=== PATIENT | female | born 1930 | race Caucasian/White ===

== ENCOUNTER 2018-02-21 14:13 | Observation (INO) ==
[2018-02-21] MEDS ORDERED: Pantoprazole Inj 40 MG Vial IV.PUSH ONE (15:01)
--- NOTE | 2018-02-21 16:02 | ED ---
HPI General Chief complaint: GI Bleed Stated complaint: Rectal bleeding Time Seen by Provider: 02/21/18 14:44 Source: patient Limitations: no limitations History of Present Illness HPI Narrative: Patient is an 87-year-old female past medical history significant for CHF, CKD, atrial fibrillation, on warfarin, who presents with complaint of bright red blood per rectum that she noticed today. She states that she woke up this morning and went to go use the restroom at which time she wiped and some blood on the toilet paper. She states that she has had several such episodes of bloody bowel movements throughout the day with intermittent diarrhea. She denies fevers. This has never happened before. She is on warfarin but has not had it checked in the last month because she has been out of town. She denies history of diverticulosis/diverticulitis, peptic ulcer disease, liver disease. She has had associated epigastric abdominal pain in addition to left lower quadrant abdominal pain which has been mild and associated with nausea but without vomiting. MD complaint: blood on toilet paper, blood streaked stool and gross hematochezia Onset (ago): hour(s) Pain Consistency: constant Severity: mild Relieving factors: none Exacerbating factors: none Context: anticoagulant use Associated symptoms: abdominal pain and nausea Treatments Prior to Arrival: none Related Data Home Medications Medication Instructions Recorded Confirmed Osteo Bi-Flex PO DAILY 02/21/18 acetaminophen [Tylenol Extra 500 mg PO BID 02/21/18 02/21/18 Strength] artifi.tears(hypromellose)(PF) 1 drp OPHTHALMIC (EYE) Q4-6H 02/21/18 02/21/18 ascorbic acid (vitamin C) [Vitamin 1,000 mg PO DAILY 02/21/18 02/21/18 C] calcium carbonate-vitamin D3 02/21/18 02/21/18 [Calcium 600 with Vitamin D3] clonidine HCl 0.1 mg PO BID 02/21/18 02/21/18 cyanocobalamin (vitamin B-12) 1,000 mcg PO BID 02/21/18 02/21/18 [Vitamin B-12] diltiazem HCl 240 mg PO DAILY 02/21/18 02/21/18 estradiol 1 mg PO DAILY 02/21/18 02/21/18 furosemide 40 mg PO QNOON 02/21/18 02/21/18 furosemide 80 mg PO QAM 02/21/18 02/21/18 [id number] C-Mn 02/21/18 [Glucosamine-Chondroitin Complx] levothyroxine 175 mcg PO DAILY 02/21/18 02/21/18 lovastatin 40 mg PO QPM 02/21/18 02/21/18 multivitamin [Multiple Vitamins] 1 tab PO DAILY 02/21/18 02/21/18 omega-3 fatty acids [Fish Oil 1,200 mg PO BID 02/21/18 02/21/18 Concentrate] potassium chloride [K-Tab] 20 meq PO DAILY 02/21/18 02/21/18 ranitidine HCl 300 mg PO DAILY 02/21/18 02/21/18 sertraline 50 mg PO DAILY 02/21/18 02/21/18 warfarin 2 mg PO DAILY 02/21/18 02/21/18 Allergies Allergy/AdvReac Type Severity Reaction Status Date / Time REYNA Inhibitors Allergy Severe Hives Verified 02/21/18 15:27 amlodipine Allergy Severe Hives Verified 02/21/18 15:27 ARB-Angiotensin Receptor Allergy Severe Hives Verified 02/21/18 15:27 Antagonist Calcium Channel Blocking Allergy Severe Hives Verified 02/21/18 15:27 Agent Dilt ciprofloxacin Allergy Severe Hives Verified 02/21/18 15:27 enalaprilat Allergy Severe Hives Verified 02/21/18 15:27 hydrochlorothiazide Allergy Severe Hives Verified 02/21/18 15:27 niacin Allergy Severe Hives Verified 02/21/18 15:27 ramipril Allergy Severe Hives Verified 02/21/18 15:27 Thiazides Allergy Severe Hives Verified 02/21/18 15:27 valsartan Allergy Severe Hives Verified 02/21/18 15:27 Review of Systems Except as stated in HPI: all other systems reviewed are negative Constitutional Denies fever(s) Eyes Denies blurry vision ENT Denies dizziness and Denies epistaxis Cardiovascular Denies chest pain and Denies diaphoresis Respiratory Denies dyspnea Gastrointestinal Reports hematochezia, Reports diarrhea and Denies vomiting Genitourinary Denies hematuria Musculoskeletal Denies back pain Neurologic Denies headache(s) Hematologic/Lymphatic Denies easy bruising PMFSH Medical History Medical History Atypical chest pain (Acute) CHF (congestive heart failure) (Acute) CKD (chronic kidney disease) stage 3, GFR 30-59 ml/min (Acute) Hypothyroidism (Acute) Pulmonary HTN (Acute) Atrial fibrillation (Acute) Edema leg (Acute) History of hysterectomy (Acute) Hypercholesteremia (Acute) Hypertension (Acute) Pacemaker (Acute) Surgical History Surgical History History of bunionectomy of both great toes (Acute) Hx of vein stripping (Acute) Social History Social History Substance History: No History of Abuse Second Hand Smoke Exposure: No Smoking Status: Never smoker How Often Do You Have a Drink Containing Alcohol: Monthly or less Recent Travel in [facility] within the Last 8 Weeks: No Recent Out of Country Travel within the Last 8 Weeks: No Immunization History Tetanus Immunization: <5 Years Hx Influenza Vaccine This Season: Yes Exam Narrative Exam Narrative: GENERAL: Well-appearing female who appears her stated age SKIN: Focused skin assessment warm/dry. HEAD: Atraumatic. Normocephalic. EYES: Pupils equal and round. No scleral icterus. No injection or drainage. ENT: No nasal bleeding or discharge. Mucous membranes pink and moist. NECK: Trachea midline. No JVD. CARDIOVASCULAR: Regular rate and rhythm. No murmur appreciated. RESPIRATORY: No accessory muscle use. Clear to auscultation. Breath sounds equal bilaterally. GASTROINTESTINAL: Abdomen soft, slightly tender in the epigastric and left lower quadrant regions, nondistended. Hepatic and splenic margins not palpable. Rectal exam reveals small external hemorrhoids and was grossly positive for blood. MUSCULOSKELETAL: No obvious deformities. No clubbing. No cyanosis. No edema. NEUROLOGICAL: Awake and alert. No obvious cranial nerve deficits. Motor grossly within normal limits. Normal speech. PSYCHIATRIC: Appropriate mood and affect; insight and judgment normal. Course Hospital Course: Patient was placed on a manager cardiac and IV was established. Labs were drawn and sent including a type and screen. GI bleed study was ordered. Reevaluation(s) Reevaluation #1: Patient has continued to do well. She continues to have intermittent bright red blood per rectum but has remained stable. Time: 19:44 Initial Documented Vital Signs Temperature 98.1 F 02/21/18 14:22 Pulse Rate 70 02/21/18 14:22 Respiratory Rate 18 02/21/18 14:22 Blood Pressure 182/81 H 02/21/18 14:22 Pulse Oximetry 95 02/21/18 14:22 Last Documented Vital Signs Temperature 98.1 F 02/21/18 14:22 Pulse Rate 70 18 18:46 Respiratory Rate 16 02/21/18 18:46 Blood Pressure 133/94 H 02/21/18 18:46 Pulse Oximetry 94 L 02/21/18 18:46 Medical Decision Making MDM Narrative Medical decision making narrative: Patient is an 87-year-old female, on warfarin , who presents with complaint of bright red blood per rectum that began today. She has been hemodynamically stable while in the ED. Labs revealed supratherapeutic INR at 3.3 with a mild anemia, baseline is unknown. Given her stability her work which will be held but does not need to be reversed at this time. Nuclear medicine study did not reveal a source of the GI bleed. She will admit be admitted to the hospitalist service overnight as observation. Differential Diagnosis Differential Diagnosis: Differential includes but is not limited to peptic ulcer disease, diverticulosis, AVM, supratherapeutic INR. Medical Records Medical records reviewed: Yes I reviewed the patient's medical records. Lab Data Lab results reviewed: Yes I reviewed the patient's lab results. Lab results narrative: Anemia present with slight elevation of the BUN consistent with a GI bleed. INR is supratherapeutic. Result diagrams: 02/21/18 15:30 02/21/18 15:30 Lab Results 02/21/18 02/21/18 02/21/18 Range/Units 15:30 15:30 15:30 WBC 7.3 (4.0-11.0) th/mm3 RBC 3.93 L (4.00-5.30) mil/mm3 Hgb 11.1 L (11.6-15.3) gm/dL Hct 33.8 L (35.0-46.0) % MCV 85.9 (80.0-100.0) fL MCH 28.3 (27.0-34.0) pg MCHC 32.9 (32.0-36.0) % RDW 14.0 (11.6-17.2) % Plt Count 240 (150-450) th/mm3 MPV 9.2 (7.0-11.0) fL Neut % (Auto) 59.9 (16.0-70.0) % Lymph % (Auto) 26.3 (9.0-44.0) % [place] % (Auto) 12.5 H (0.0-8.0) % Eos % (Auto) 0.9 (0.0-4.0) % Baso % (Auto) 0.4 (0.0-2.0) % Neut # (Auto) 4.4 (1.8-7.7) th/mm3 Lymph # (Auto) 1.9 (1.0-4.8) th/mm3 [place] # (Auto) 0.9 (0.0-0.9) th/mm3 Eos # (Auto) 0.1 (0.0-0.4) th/mm3 Baso # (Auto) 0.0 (0.0-0.2) th/mm3 WBC Differential . Differential Comment Auto diff final PT 33.3 H (9.8-11.6) sec INR 3.3 Ratio APTT (24.3-30.1) sec Sodium 142 (136-145) meq/L Potassium 3.6 (3.5-5.1) meq/L Chloride 103 (98-107) meq/L Carbon Dioxide 31.9 (21.0-32.0) meq/L Anion Gap 7 (5-15) meq/L BUN 20 H (7-18) mg/dL Creatinine 1.26 H (0.50-1.00) mg/dL Estimated GFR 40 L (>89) mL/min Random Glucose 99 (74-106) mg/dL Calcium 8.9 (8.5-10.1) mg/dL Total Bilirubin 0.4 (0.2-1.0) mg/dL AST 17 (15-37) U/L ALT 20 (10-53) U/L Alkaline Phosphatase 78 (45-117) U/L Total Protein 7.4 (6.4-8.2) g/dL Albumin 3.5 (3.4-5.0) g/dL Blood Type Antibody Screen 02/21/18 02/21/18 Range/Units 15:30 15:30 WBC (4.0-11.0) th/mm3 RBC (4.00-5.30) mil/mm3 Hgb (11.6-15.3) gm/dL Hct (35.0-46.0) % MCV (80.0-100.0) fL MCH (27.0-34.0) pg MCHC (32.0-36.0) % RDW (11.6-17.2) % Plt Count (150-450) th/mm3 MPV (7.0-11.0) fL Neut % (Auto) (16.0-70.0) % Lymph % (Auto) (9.0-44.0) % [place] % (Auto) (0.0-8.0) % Eos % (Auto) (0.0-4.0) % Baso % (Auto) (0.0-2.0) % Neut # (Auto) (1.8-7.7) th/mm3 Lymph # (Auto) (1.0-4.8) th/mm3 [place] # (Auto) (0.0-0.9) th/mm3 Eos # (Auto) (0.0-0.4) th/mm3 Baso # (Auto) (0.0-0.2) th/mm3 WBC Differential Differential Comment PT (9.8-11.6) sec INR Ratio APTT 37.8 H (24.3-30.1) sec Sodium (136-145) meq/L Potassium (3.5-5.1) meq/L Chloride (98-107) meq/L Carbon Dioxide (21.0-32.0) meq/L Anion Gap (5-15) meq/L BUN (7-18) mg/dL Creatinine (0.50-1.00) mg/dL Estimated GFR (>89) mL/min Random Glucose (74-106) mg/dL Calcium (8.5-10.1) mg/dL Total Bilirubin (0.2-1.0) mg/dL AST (15-37) U/L ALT (10-53) U/L Alkaline Phosphatase (45-117) U/L Total Protein (6.4-8.2) g/dL Albumin (3.4-5.0) g/dL Blood Type B Positive Antibody Screen Negative Imaging Data Radiologist's impression: GI Bleed Scan Nuclear Medicine 02/21/18 15:20 CONCLUSION: 1. Negative GI bleeding study. Discharge Plan Discharge Disposition Patient Disposition: 30 Still Patient Discharge Condition Condition: Stable Discharge Details Diagnosis: Acute blood loss anemia, Hematochezia, Supratherapeutic INR Physicians Team ED Provider: Magnolia Adams Primary Care Provider: Dio Abernathy Attending Provider: Suleman Ureña Discharge Interventions Interventions: Vital Signs Last Done: 02/21/18 18:46 Status ED Status: Admitted Observation Patient
[2018-02-21 16:03] LABS: Baso % (Auto) 0.4 % (0.0-2.0); Eos # (Auto) 0.1 th/mm3 (0.0-0.4); Eos % (Auto) 0.9 % (0.0-4.0); Hematocrit 33.8 % (35.0-46.0); Hemoglobin 11.1 gm/dL (11.6-15.3); Lymph # (Auto) 1.9 th/mm3 (1.0-4.8); Lymph % (Auto) 26.3 % (9.0-44.0); Mean Corpuscular HGB Conc 32.9 % (32.0-36.0); Mean Corpuscular Hemoglobin 28.3 pg (27.0-34.0); Mean Corpuscular Volume 85.9 fL (80.0-100.0); Mean Platelet Volume 9.2 fL (7.0-11.0); Mono # (Auto) 0.9 th/mm3 (0.0-0.9); Mono % (Auto) 12.5 % (0.0-8.0); Neut # (Auto) 4.4 th/mm3 (1.8-7.7); Neut % (Auto) 59.9 % (16.0-70.0); Platelet Count 240 th/mm3 (150-450); Red Blood Count 3.93 mil/mm3 (4.00-5.30); White Blood Count 7.3 th/mm3 (4.0-11.0)
[2018-02-21 16:15] LABS: INR 3.3 Ratio; Prothrombin Time 33.3 sec (9.8-11.6)
[2018-02-21 16:27] LABS: Alanine Aminotransferase 20 U/L (10-53); Albumin 3.5 g/dL (3.4-5.0); Anion Gap 7 meq/L (5-15); Aspartate Aminotransferase 17 U/L (15-37); Blood Urea Nitrogen 20 mg/dL (7-18); Calcium 8.9 mg/dL (8.5-10.1); Carbon Dioxide 31.9 meq/L (21.0-32.0); Chloride 103 meq/L (98-107); Glomerular Filtration Rate 40 mL/min (>89); Glucose,Random 99 mg/dL (74-106); Potassium 3.6 meq/L (3.5-5.1); Sodium 142 meq/L (136-145)
[2018-02-21 16:30] LABS: Alkaline Phosphatase 78 U/L (45-117); Total Protein 7.4 g/dL (6.4-8.2)
--- NOTE | 2018-02-21 19:02 | NM ---
EXAM DATE: 02/21/2018 6:36 PM EDT AGE/SEX: 87 years / Female INDICATIONS: Rectal bleeding. CLINICAL DATA: This is the patient's initial encounter. Patient reports that signs and symptoms have been present for 1 day and indicates a pain score of 0/10. MEDICAL/SURGICAL HISTORY: Hypertension. Hysterectomy. Pacemaker. COMPARISON: No prior exams available for comparison. TECHNIQUE: Following the modified in vitro labeling of autologous red cells, dynamic continuous image s were acquired for two hours. ?? DOSE: 21.2 mCi Tc 99m Ultratag Labeled Red Blood Cells IV IMAGING TIME: 2 hr FINDINGS: Biodistribution: There is a very good labeling of red cells without significant uptake in the gastri c wall. There is good delineation of the blood pool of the spleen and abdominal vessels. Bleeding: No episodes of active GI bleeding are observed during two hours of continuous observation . CONCLUSION: 1. Negative GI bleeding study. Electronically signed by: Yosef Redding MD 02/21/2018 7:01 PM EDT
[2018-02-21] MEDS ORDERED: Bisacodyl 10 MG Supp RECTAL PRN ×2 (21:54→21:55)
[2018-02-21] MEDS ORDERED: Temazepam 15 MG Capsule PO PRN ×2 (21:54→21:55)
--- NOTE | 2018-02-21 22:13 | P.HP ---
History of Present Illness Service: [facility] hospitalist Primary Care Physician: Dio Abernathy Chief Complaint: blood per rectum History of Present Illness: Patient is an 87-year-old female past medical history significant for congestive heart failure, chronic kidney disease, atrial fibrillation, on warfarin, who presents with complaints of red blood per rectum that she noticed today. Patient states that she woke up this morning when to go to use the restroom at which time she wiped herself and blood was on the toilet paper. She states that she had several such episodes of bloody bowel movements throughout the day with intermittent loose stools. States that this never happened to her before. Patient states that she takes warfarin but has not had it checked in over a month with her being out of town. Patient denies any fever or any history of diverticulosis diverticulitis, peptic ulcer disease, liver disease. In addition to the level of the blood in the rectum she has associated epigastric abdominal pain left lower quadrant abdominal pain mild in description associated with nausea but without vomiting. An evaluation in the emergency room hemoglobin was stable INR was slightly elevated at 3.3 and she did have guaiac positive stools. She will be admitted now will be started on Protonix drip will ask GI consult as the level was 3.3 vitamin K will be held for now we will just recheck INR in a.m. - Diagnosis (1) Acute blood loss anemia (2) Hematochezia (3) Supratherapeutic INR (4) CHF (congestive heart failure) Review of Systems All other systems reviewed negative except as stated in HPI PMFSH - History History Provided By: Patient - Medical History Medical History: Medical History (Last Reviewed 02/21/18 @ 16:55 by Magnolia Adams MD) Atypical chest pain CHF (congestive heart failure) CKD (chronic kidney disease) stage 3, GFR 30-59 ml/min Hypothyroidism Pulmonary HTN Atrial fibrillation Edema leg History of hysterectomy Hypercholesteremia Hypertension Pacemaker - Surgical History Surgical History: Surgical History (Last Reviewed 02/21/18 @ 16:55 by Magnolia Adams MD) History of bunionectomy of both great toes Hx of vein stripping - Tobacco History Second Hand Smoke Exposure: No Tobacco Use In Past 30 Days: No Smoking Status: Never smoker - Alcohol History How Often Do You Have a Drink Containing Alcohol: Monthly or less - Substance Use History Substance History: No History of Abuse - Travel History Recent Travel in the [place] Within the Last 8 Weeks: No Recent Travel Out of the Country Within the Last 8 Weeks: No - Immunization History Tetanus Immunization: <5 Years Hx Influenza Vaccine This Season: Yes Medications and Allergies Active Medications: Active Medications Acetaminophen (Tylenol) 500 mg PO BID [facility] Al Hydroxide/Mg Hydroxide (Milk Of Magnesia Liq) 30 ml PO Q12H PRN PRN Reason: Mild Constipation Bisacodyl (Dulcolax Supp) 10 mg RECTAL DAILY PRN PRN Reason: SEVERE CONSITIPATION Bisacodyl (Dulcolax Supp) 10 mg RECTAL DAILY PRN PRN Reason: SEVERE CONSITIPATION Clonidine HCl (Clonidine (Nicu) 20 Mcg/Ml Liq) 100 mcg PO BID [facility] Cyanocobalamin (Vitamin B12) 1,000 mcg PO BID [facility] Furosemide (Lasix) 40 mg PO QNOON [facility] Furosemide (Lasix) 80 mg PO QAM [facility] Pantoprazole Sodium 80 mg/ (Sodium Chloride) 100 mls @ 10 mls/hr IV.CONT CONT [facility] Lactulose (Lactulose Liq) 30 ml PO DAILY PRN PRN Reason: SEVERE CONSITIPATION Non-Formulary Medication (Artifi.Tears(Hypromellose)(Pf) [Artifi.Tears( Hypromellose)(Pf)]) 1 drp EACH EYE Q4-6H [facility] Non-Formulary Medication (Ascorbic Acid (Vitamin C) [Vitamin C]) 1,000 mg PO DAILY [facility] Non-Formulary Medication (Diltiazem Hcl [Diltiazem Hcl]) 240 mg PO DAILY [facility] Non-Formulary Medication (Estradiol [Estradiol]) 1 mg PO DAILY [facility] Non-Formulary Medication (Levothyroxine [Levothyroxine]) 175 mcg PO DAILY [facility] Non-Formulary Medication (Lovastatin [Lovastatin]) 40 mg PO QPM [facility] Non-Formulary Medication (Potassium Chloride [K-Tab]) 20 meq PO DAILY [facility] Non-Formulary Medication (Multivitamin [Multiple Vitamins]) 1 tab PO DAILY [facility] Senna/Docusate Sodium (Diane-Colace) 1 tab PO BID [facility] Senna/Docusate Sodium (Diane-Colace) 1 tab PO BID [facility] Sennosides (Senokot) 17.2 mg PO Q12H PRN PRN Reason: Moderate Constipation Sennosides (Senokot) 17.2 mg PO Q12H PRN PRN Reason: Moderate Constipation Sertraline HCl (Zoloft) 50 mg PO DAILY [facility] Sodium Chloride (Ns Flush) 2 ml IV.FLUSH PRN PRN PRN Reason: FLUSH AFTER USING IV ACCESS Temazepam (Restoril) 15 mg PO HS PRN PRN Reason: INSOMNIA Temazepam (Restoril) 15 mg PO HS PRN PRN Reason: INSOMNIA Allergies Allergy/AdvReac Type Severity Reaction Status Date / Time REYNA Inhibitors Allergy Severe Hives Verified 02/21/18 15:27 amlodipine Allergy Severe Hives Verified 02/21/18 15:27 ARB-Angiotensin Receptor Allergy Severe Hives Verified 02/21/18 15:27 Antagonist Calcium Channel Blocking Allergy Severe Hives Verified 02/21/18 15:27 Agent Dilt ciprofloxacin Allergy Severe Hives Verified 02/21/18 15:27 enalaprilat Allergy Severe Hives Verified 02/21/18 15:27 hydrochlorothiazide Allergy Severe Hives Verified 02/21/18 15:27 niacin Allergy Severe Hives Verified 02/21/18 15:27 ramipril Allergy Severe Hives Verified 02/21/18 15:27 Thiazides Allergy Severe Hives Verified 02/21/18 15:27 valsartan Allergy Severe Hives Verified 02/21/18 15:27 Home Medications Medication Instructions Recorded Confirmed Type Osteo Bi-Flex PO DAILY 02/21/18 History acetaminophen [Tylenol Extra 500 mg PO BID 02/21/18 02/21/18 History Strength] artifi.tears(hypromellose)(PF) 1 drp OPHTHALMIC (EYE) Q4-6H 02/21/18 02/21/18 History ascorbic acid (vitamin C) [Vitamin 1,000 mg PO DAILY 02/21/18 02/21/18 History C] calcium carbonate-vitamin D3 02/21/18 02/21/18 History [Calcium 600 with Vitamin D3] clonidine HCl 0.1 mg PO BID 02/21/18 02/21/18 History cyanocobalamin (vitamin B-12) 1,000 mcg PO BID 02/21/18 02/21/18 History [Vitamin B-12] diltiazem HCl 240 mg PO DAILY 02/21/18 02/21/18 History estradiol 1 mg PO DAILY 02/21/18 02/21/18 History furosemide 40 mg PO QNOON 02/21/18 02/21/18 History furosemide 80 mg PO QAM 02/21/18 02/21/18 History [id number] C-Mn 02/21/18 History [Glucosamine-Chondroitin Complx] levothyroxine 175 mcg PO DAILY 02/21/18 02/21/18 History lovastatin 40 mg PO QPM 02/21/18 02/21/18 History multivitamin [Multiple Vitamins] 1 tab PO DAILY 02/21/18 02/21/18 History omega-3 fatty acids [Fish Oil 1,200 mg PO BID 02/21/18 02/21/18 History Concentrate] potassium chloride [K-Tab] 20 meq PO DAILY 02/21/18 02/21/18 History ranitidine HCl 300 mg PO DAILY 02/21/18 02/21/18 History sertraline 50 mg PO DAILY 02/21/18 02/21/18 History warfarin 2 mg PO DAILY 02/21/18 02/21/18 History Exam Vital signs: Vital Signs 02/21/18 14:22 02/21/18 14:35 02/21/18 15:30 Temperature 98.1 F Pulse Rate 70 69 69 Respiratory Rate 18 16 16 Blood Pressure 182/81 H 133/96 H 133/96 H Pulse Oximetry 95 97 94 L 02/21/18 15:34 02/21/18 18:30 02/21/18 18:46 Temperature Pulse Rate 70 Respiratory Rate 16 Blood Pressure 133/94 H Pulse Oximetry 93 L 98 94 L Intake & Output 02/21/18 02/21/18 02/22/18 06:59 18:59 06:59 Weight 74.936 kg Narrative: GENERAL: SKIN: Warm and dry. HEAD: Normocephalic. EYES: No scleral icterus. No injection or drainage. NECK: Supple, trachea midline. No JVD or lymphadenopathy. CARDIOVASCULAR: Regular rate and rhythm without murmurs, gallops, or rubs. RESPIRATORY: Breath sounds equal bilaterally. No accessory muscle use. GASTROINTESTINAL: Abdomen soft tender diffuse guiac positive stools MUSCULOSKELETAL: No cyanosis, or edema. BACK: Nontender without obvious deformity. No CVA tenderness. Results - Labs CBC & Chem 7: 02/21/18 15:30 02/21/18 15:30 Labs: Laboratory Results - last 24 hr 02/21/18 02/21/18 02/21/18 15:30 15:30 15:30 WBC 7.3 RBC 3.93 L Hgb 11.1 L Hct 33.8 L MCV 85.9 MCH 28.3 MCHC 32.9 RDW 14.0 Plt Count 240 MPV 9.2 Neut % (Auto) 59.9 Lymph % (Auto) 26.3 [place] % (Auto) 12.5 H Eos % (Auto) 0.9 Baso % (Auto) 0.4 Neut # (Auto) 4.4 Lymph # (Auto) 1.9 [place] # (Auto) 0.9 Eos # (Auto) 0.1 Baso # (Auto) 0.0 WBC Differential . Differential Comment Auto diff final PT 33.3 H INR 3.3 APTT Sodium 142 Potassium 3.6 Chloride 103 Carbon Dioxide 31.9 Anion Gap 7 BUN 20 H Creatinine 1.26 H Estimated GFR 40 L Random Glucose 99 Calcium 8.9 Total Bilirubin 0.4 AST 17 ALT 20 Alkaline Phosphatase 78 Total Protein 7.4 Albumin 3.5 Blood Type Antibody Screen 02/21/18 02/21/18 15:30 15:30 WBC RBC Hgb Hct MCV MCH MCHC RDW Plt Count MPV Neut % (Auto) Lymph % (Auto) [place] % (Auto) Eos % (Auto) Baso % (Auto) Neut # (Auto) Lymph # (Auto) [place] # (Auto) Eos # (Auto) Baso # (Auto) WBC Differential Differential Comment PT INR APTT 37.8 H Sodium Potassium Chloride Carbon Dioxide Anion Gap BUN Creatinine Estimated GFR Random Glucose Calcium Total Bilirubin AST ALT Alkaline Phosphatase Total Protein Albumin Blood Type B Positive Antibody Screen Negative - Imaging Impressions GI Bleed Scan Nuclear Medicine 02/21/18 15:20 CONCLUSION: 1. Negative GI bleeding study. Caprini VTE Risk Assessment Caprini VTE Risk Assessment: Moderate/High Risk (score >= 2) Caprini Risk Assessment Model: Point Value = 1 Point Value = 2 Point Value = 3 Point Value = 5 Age 41-60 Minor surgery BMI > 25 kg/m2 Swollen legs Varicose veins or History of unexplained or recurrent spontaneous Oral contraceptives or hormone replacement Sepsis (< 1 month) Serious lung disease, including pneumonia (< 1 month) Abnormal pulmonary function Acute myocardial infarction Congestive heart failure (< 1 month) History of inflammatory bowel disease Medical patient at bed rest Age 61-74 Arthroscopic surgery Major open surgery (> 45 min) Laparoscopic surgery (> 45 min) Malignancy Confined to bed (> 72 hours) Immobilizing plaster cast Central venous access Age >= 75 History of VTE Family history of VTE Factor V Leiden Prothrombin [id number] Lupus anticoagulant Anticardiolipin antibodies Elevated serum homocysteine Heparin-induced thrombocytopenia Other congenital or acquired thrombophilia Stroke (< 1 month) Elective arthroplasty Hip, pelvis, or leg fracture Acute spinal cord injury (< 1 month) Prophylaxis Regimen: Total Risk Factor Score Risk Level Prophylaxis Regimen 0-1 Low Early ambulation 2 Moderate Order ONE of the following: *Sequential Compression Device (SCD) *Heparin 5000 units SQ BID 3-4 Higher Order ONE of the following medications: *Heparin 5000 units SQ TID *Enoxaparin/Lovenox 40 mg SQ daily (WT < 150 kg, CrCl > 30 mL/min) *Enoxaparin/Lovenox 30 mg SQ daily (WT < 150 kg, CrCl > 10-29 mL/min) *Enoxaparin/Lovenox 30 mg SQ BID (WT < 150 kg, CrCl > 30 mL/min) AND/OR *Sequential Compression Device (SCD) 5 or more Highest Order ONE of the following medications: *Heparin 5000 units SQ TID (Preferred with Epidurals) *Enoxaparin/Lovenox 40 mg SQ daily (WT < 150 kg, CrCl > 30 mL/min) *Enoxaparin/Lovenox 30 mg SQ daily (WT < 150 kg, CrCl > 10-29 mL/min) *Enoxaparin/Lovenox 30 mg SQ BID (WT < 150 kg, CrCl > 30 mL/min) AND *Sequential Compression Device (SCD) Assessment and Plan - Assessment (1) Acute blood loss anemia Code(s): D62 - Acute posthemorrhagic anemia Status: Acute Plan: follow cbc GI evaluation protonix drip (2) Hematochezia Code(s): K92.1 - Melena Status: Acute Plan: as above GI evaluation protonix drip hold coumadin (3) Supratherapeutic INR Code(s): R79.1 - Abnormal coagulation profile Status: Acute Plan: recheck inr in am hold coumadin (4) CHF (congestive heart failure) Code(s): I50.9 - Heart failure, unspecified Status: Acute Plan: chronic on lasix bid will continue for now - Plan further plan as case develops Code Status: full Discussed Condition With: patient
[2018-02-21] MEDS ORDERED: Pantoprazole Inj 80 MG in Sodium Chlor 0.9% Inj 100 ML IV.CONT SCH (23:00)
[2018-02-21] MEDS: Furosemide 40 MG Tablet PO SCH (23:38)
[2018-02-22] MEDS: Artificial Tears Opth Drops 15 ML Bottle EACH EYE SCH ×3 (04:44→23:16)
[2018-02-22 07:16] LABS: INR 2.9 Ratio; Prothrombin Time 29.5 sec (9.8-11.6)
[2018-02-22 07:31] LABS: Calcium 8.4 mg/dL (8.5-10.1); Carbon Dioxide 31.6 meq/L (21.0-32.0); Potassium 3.2 meq/L (3.5-5.1)
[2018-02-22 07:38] LABS: Baso % (Auto) 0.5 % (0.0-2.0); Eos # (Auto) 0.1 th/mm3 (0.0-0.4); Eos % (Auto) 1.6 % (0.0-4.0); Hematocrit 30.5 % (35.0-46.0); Lymph # (Auto) 1.7 th/mm3 (1.0-4.8); Lymph % (Auto) 30.9 % (9.0-44.0); Mean Corpuscular HGB Conc 32.7 % (32.0-36.0); Mean Corpuscular Hemoglobin 28.1 pg (27.0-34.0); Mean Platelet Volume 8.7 fL (7.0-11.0); Mono # (Auto) 0.8 th/mm3 (0.0-0.9); Mono % (Auto) 14.6 % (0.0-8.0); Neut % (Auto) 52.4 % (16.0-70.0); Platelet Count 211 th/mm3 (150-450); Red Blood Count 3.55 mil/mm3 (4.00-5.30); White Blood Count 5.7 th/mm3 (4.0-11.0)
[2018-02-22] MEDS ORDERED: Sodium Chlor 0.9% Inj 250 ML IV.SIG SCH (09:00)
--- NOTE | 2018-02-22 09:00 | P.CONGI ---
History of Present Illness Consult date: 02/22/18 Consult reason: BRBPR Chief complaint: GI bleeding History of Present Illness: This is a 87 yo F with PMH significant for a-fib on Coumadin, HTN, hypothyroidism, hyperlipidemia, CHF, and CKD who presented to the ER yesterday with complaints of bloody stools. Pt states she first noticed blood in her stool yesterday morning, some maroon colored blood mixed in with a solid bowel movement. She had multiple stools throughout the day and she states with each bowel movement her stools became looser. Associated fecal urgency, denies incontinence. Reports some mild abdominal discomfort related to BMs and resolves after BMs. Also has been having some mild epigastric discomfort. Reports some mild intermittent nausea but denies any emesis. Denies heartburn and unintentional weight loss. Denies family history of colon cancer. She thinks her last colonoscopy was around 10 years ago and does not remember any abnormal findings. Does not think she has ever had an EGD. Denies ETOH and smoking. Takes [employer] Back ache medicine in the morning and has for multiple weeks. <Jewell Bravo - Last Filed: 02/22/18 08:40> Review of Systems Gastrointestinal: Reports abdominal pain, Reports bright, red blood in stools, Reports loose stools, Reports nausea, Denies black, tarry stools, Denies heartburn, Denies vomiting <Jewell Bravo - Last Filed: 02/22/18 08:40> PMFSH - History History Provided By: Patient - Medical History Medical History: Medical History (Last Reviewed 02/21/18 @ 16:55 by Magnolia Adams MD) Atypical chest pain CHF (congestive heart failure) CKD (chronic kidney disease) stage 3, GFR 30-59 ml/min Hypothyroidism Pulmonary HTN Atrial fibrillation Edema leg History of hysterectomy Hypercholesteremia Hypertension Pacemaker - Surgical History Surgical History: Surgical History (Last Reviewed 02/21/18 @ 16:55 by Magnolia Adams MD) History of bunionectomy of both great toes Hx of vein stripping - Tobacco History Second Hand Smoke Exposure: No Tobacco Use In Past 30 Days: No Smoking Status: Never smoker - Alcohol History How Often Do You Have a Drink Containing Alcohol: Never - Substance Use History Substance History: No History of Abuse, Active Abuse, Past History - Travel History Recent Travel in the [facility] Within the Last 8 Weeks: No Recent Travel Out of the Country Within the Last 8 Weeks: No - Immunization History Tetanus Immunization: >5 Years Hx Influenza Vaccine This Season: Yes <Jewell Bravo - Last Filed: 02/22/18 08:40> - Medical History Medical History: Medical History (Last Reviewed 02/21/18 @ 16:55 by Magnolia Adams MD) Atypical chest pain CHF (congestive heart failure) CKD (chronic kidney disease) stage 3, GFR 30-59 ml/min Hypothyroidism Pulmonary HTN Atrial fibrillation Edema leg History of hysterectomy Hypercholesteremia Hypertension Pacemaker - Surgical History Surgical History: Surgical History (Last Reviewed 02/21/18 @ 16:55 by Magnolia Adams MD) History of bunionectomy of both great toes Hx of vein stripping <Vaibhav Terrell - Last Filed: 02/22/18 23:12> Medications and Allergies Active Medications: Active Medications Acetaminophen (Tylenol) 500 mg PO BID [facility] Al Hydroxide/Mg Hydroxide (Milk Of Magnesia Liq) 30 ml PO Q12H PRN PRN Reason: Mild Constipation Artificial Tears (Tears Naturale Opth Drops) 1 drop EACH EYE Q4HR [facility] Last Admin: 02/22/18 04:44 Dose: Not Given Ascorbic Acid (Vitamin C) 1,000 mg PO DAILY [facility] Bisacodyl (Dulcolax Supp) 10 mg RECTAL DAILY PRN PRN Reason: SEVERE CONSITIPATION Bisacodyl (Dulcolax Supp) 10 mg RECTAL DAILY PRN PRN Reason: SEVERE CONSITIPATION Clonidine HCl (Catapres) 0.1 mg PO BID [facility] Cyanocobalamin (Vitamin B12) 1,000 mcg PO BID [facility] Diltiazem HCl (Cardizem Cd 24hr) 240 mg PO DAILY [facility] Estradiol (Estrace) 1 mg PO DAILY [facility] Furosemide (Lasix) 40 mg PO DAILY@1200 [facility] Last Admin: 02/21/18 23:38 Dose: 40 mg Furosemide (Lasix) 80 mg PO DAILY [facility] Pantoprazole Sodium 80 mg/ (Sodium Chloride) 100 mls @ 10 mls/hr IV.CONT CONT [facility] Lactulose (Lactulose Liq) 30 ml PO DAILY PRN PRN Reason: SEVERE CONSITIPATION Levothyroxine Sodium (Synthroid) 175 mcg PO DAILY@0600 [facility] Multivitamins (Theragran) 1 tab PO DAILY [facility] Potassium Chloride (K-Dur) 20 meq PO DAILY [facility] Pravastatin Sodium (Pravachol) 40 mg PO QPM [facility] Senna/Docusate Sodium (Diane-Colace) 1 tab PO BID [facility] Senna/Docusate Sodium (Diane-Colace) 1 tab PO BID [facility] Sennosides (Senokot) 17.2 mg PO Q12H PRN PRN Reason: Moderate Constipation Sertraline HCl (Zoloft) 50 mg PO DAILY [facility] Sodium Chloride (Ns Flush) 2 ml IV.FLUSH PRN PRN PRN Reason: FLUSH AFTER USING IV ACCESS Temazepam (Restoril) 15 mg PO HS PRN PRN Reason: INSOMNIA <Jewell Bravo - Last Filed: 02/22/18 08:40> Active Medications: Active Medications Acetaminophen (Tylenol) 500 mg PO BID [facility] Last Admin: 02/22/18 20:26 Dose: 500 mg Al Hydroxide/Mg Hydroxide (Milk Of Magnesia Liq) 30 ml PO Q12H PRN PRN Reason: Mild Constipation Artificial Tears (Refresh Tears 0.5% Opth Drops) 1 drop EACH EYE Q4H PRN PRN Reason: DRY EYE(S) Ascorbic Acid (Vitamin C) 1,000 mg PO DAILY [facility] Last Admin: 02/22/18 14:52 Dose: 500 mg Bisacodyl (Dulcolax Supp) 10 mg RECTAL DAILY PRN PRN Reason: SEVERE CONSITIPATION Bisacodyl (Dulcolax Supp) 10 mg RECTAL DAILY PRN PRN Reason: SEVERE CONSITIPATION Clonidine HCl (Catapres) 0.1 mg PO BID [facility] Last Admin: 02/22/18 20:26 Dose: 0.1 mg Cyanocobalamin (Vitamin B12) 1,000 mcg PO BID [facility] Last Admin: 02/22/18 20:26 Dose: 1,000 mcg Diltiazem HCl (Cardizem Cd 24hr) 240 mg PO DAILY [facility] Last Admin: 02/22/18 14:56 Dose: 240 mg Estradiol (Estrace) 1 mg PO DAILY [facility] Last Admin: 02/22/18 15:05 Dose: 1 mg Furosemide (Lasix) 40 mg PO DAILY@1200 [facility] Last Admin: 02/22/18 19:26 Dose: 40 mg Furosemide (Lasix) 80 mg PO DAILY [facility] Last Admin: 02/22/18 11:50 Dose: 80 mg Furosemide (Lasix) 40 mg PO QPM [facility] Last Admin: 02/22/18 19:39 Dose: 40 mg Sodium Chloride (Ns Inj) 250 mls @ 15 mls/hr IV.SIG ONCE [facility] Stop: 02/23/18 01:39 Last Admin: 02/22/18 11:45 Dose: 15 mls/hr Potassium Chloride/Sodium Chloride (Potassium Chlor 20 Meq/Nacl 0.45% Inj) 1, 000 mls @ 50 mls/hr IV.CONT .Q20H [facility] Last Admin: 02/22/18 14:51 Dose: 50 mls/hr Lactulose (Lactulose Liq) 30 ml PO DAILY PRN PRN Reason: SEVERE CONSITIPATION Levothyroxine Sodium (Synthroid) 175 mcg PO DAILY@0600 [facility] Last Admin: 02/22/18 15:17 Dose: Not Given Multivitamins (Theragran) 1 tab PO DAILY [facility] Last Admin: 02/22/18 11:53 Dose: 1 tab Pantoprazole Sodium (Protonix Inj) 40 mg IV.PUSH Q12H [facility] Last Admin: 02/22/18 14:39 Dose: 40 mg Potassium Chloride (K-Dur) 20 meq PO DAILY [facility] Last Admin: 02/22/18 14:53 Dose: 20 meq Pravastatin Sodium (Pravachol) 40 mg PO QPM [facility] Last Admin: 02/22/18 19:40 Dose: 40 mg Senna/Docusate Sodium (Diane-Colace) 1 tab PO BID [facility] Last Admin: 02/22/18 20:26 Dose: 1 tab Senna/Docusate Sodium (Diane-Colace) 1 tab PO BID [facility] Last Admin: 02/22/18 20:26 Dose: Not Given Sennosides (Senokot) 17.2 mg PO Q12H PRN PRN Reason: Moderate Constipation Sertraline HCl (Zoloft) 50 mg PO DAILY [facility] Last Admin: 02/22/18 14:53 Dose: 50 mg Sodium Chloride (Ns Flush) 2 ml IV.FLUSH PRN PRN PRN Reason: FLUSH AFTER USING IV ACCESS Temazepam (Restoril) 15 mg PO HS PRN PRN Reason: INSOMNIA <Vaibhav Terrell E - Last Filed: 02/22/18 23:12> Allergies Allergy/AdvReac Type Severity Reaction Status Date / Time REYNA Inhibitors Allergy Severe Hives Verified 02/21/18 15:27 amlodipine Allergy Severe Hives Verified 02/21/18 15:27 ARB-Angiotensin Receptor Allergy Severe Hives Verified 02/21/18 15:27 Antagonist Calcium Channel Blocking Allergy Severe Hives Verified 02/21/18 15:27 Agent Dilt ciprofloxacin Allergy Severe Hives Verified 02/21/18 15:27 enalaprilat Allergy Severe Hives Verified 02/21/18 15:27 hydrochlorothiazide Allergy Severe Hives Verified 02/21/18 15:27 niacin Allergy Severe Hives Verified 02/21/18 15:27 ramipril Allergy Severe Hives Verified 02/21/18 15:27 Thiazides Allergy Severe Hives Verified 02/21/18 15:27 valsartan Allergy Severe Hives Verified 02/21/18 15:27 Home Medications Medication Instructions Recorded Confirmed Type Osteo Bi-Flex PO DAILY 02/21/18 History acetaminophen [Tylenol Extra 500 mg PO BID 02/21/18 02/21/18 History Strength] artifi.tears(hypromellose)(PF) 1 drp OPHTHALMIC (EYE) Q4-6H 02/21/18 02/21/18 History ascorbic acid (vitamin C) [Vitamin 1,000 mg PO DAILY 02/21/18 02/21/18 History C] calcium carbonate-vitamin D3 02/21/18 02/21/18 History [Calcium 600 with Vitamin D3] clonidine HCl 0.1 mg PO BID 02/21/18 02/21/18 History cyanocobalamin (vitamin B-12) 1,000 mcg PO BID 02/21/18 02/21/18 History [Vitamin B-12] diltiazem HCl 240 mg PO DAILY 02/21/18 02/21/18 History estradiol 1 mg PO DAILY 02/21/18 02/21/18 History furosemide 40 mg PO QNOON 02/21/18 02/21/18 History furosemide 80 mg PO QAM 02/21/18 02/21/18 History [id number]-ovl C-Mn 02/21/18 History [Glucosamine-Chondroitin Complx] levothyroxine 175 mcg PO DAILY 02/21/18 02/21/18 History lovastatin 40 mg PO QPM 02/21/18 02/21/18 History multivitamin [Multiple Vitamins] 1 tab PO DAILY 02/21/18 02/21/18 History omega-3 fatty acids [Fish Oil 1,200 mg PO BID 02/21/18 02/21/18 History Concentrate] potassium chloride [K-Tab] 20 meq PO BID 02/21/18 02/22/18 History ranitidine HCl 300 mg PO DAILY 02/21/18 02/21/18 History sertraline 50 mg PO DAILY 02/21/18 02/21/18 History warfarin 2 mg PO DAILY 02/21/18 02/21/18 History furosemide [Lasix] 40 mg PO QPM 02/22/18 02/22/18 History Exam Vital signs: Vital Signs 02/21/18 14:22 02/21/18 14:35 02/21/18 15:30 Temperature 98.1 F Pulse Rate 70 69 69 Respiratory Rate 18 16 16 Blood Pressure 182/81 H 133/96 H 133/96 H Pulse Oximetry 95 97 94 L 02/21/18 15:34 02/21/18 18:30 02/21/18 18:46 Temperature Pulse Rate 70 Respiratory Rate 16 Blood Pressure 133/94 H Pulse Oximetry 93 L 98 94 L 02/21/18 23:56 02/22/18 03:40 02/22/18 04:00 Temperature 98.4 F 97.6 F Pulse Rate 70 70 Respiratory Rate 16 16 Blood Pressure 167/76 H 183/81 H 158/80 H Pulse Oximetry 95 89 L 02/22/18 07:36 Temperature 97.7 F Pulse Rate 70 Respiratory Rate 16 Blood Pressure 170/84 H Pulse Oximetry 93 L Intake & Output 02/21/18 02/22/18 02/22/18 18:59 06:59 18:59 Weight 74.936 kg 75 kg Other: Weight On Admission 75 kg - Constitutional no acute distress - Routine HEENT Exam Head: Present: normocephalic, atraumatic - Routine Respiratory Exam Absent: accessory muscle use - Routine Cardiovascular Exam Present: irregularly irregular - Routine Abdominal Exam Present: soft, normoactive bowel sounds. Absent: tenderness - Routine Skin Exam Present: dry, warm - Routine Neurological Exam Present: alert, oriented X3 <Jewell Bravo - Last Filed: 02/22/18 08:40> Vital signs: Vital Signs 02/21/18 23:56 02/22/18 03:40 02/22/18 04:00 Temperature 98.4 F 97.6 F Pulse Rate 70 70 Respiratory Rate 16 16 Blood Pressure 167/76 H 183/81 H 158/80 H Pulse Oximetry 95 89 L 02/22/18 07:36 02/22/18 11:48 02/22/18 15:47 Temperature 97.7 F 97.9 F 98.5 F Pulse Rate 70 70 71 Respiratory Rate 16 18 17 Blood Pressure 170/84 H 157/73 H 155/72 H Pulse Oximetry 93 L 95 92 L 02/22/18 19:00 02/22/18 20:20 Temperature 98.1 F Pulse Rate 70 Respiratory Rate 17 Blood Pressure 134/62 Pulse Oximetry 98 96 Intake & Output 02/22/18 02/22/18 02/23/18 06:59 18:59 06:59 Intake Total 720 / 720 Balance 720 / 720 Weight 75 kg Intake: Oral 720 / 720 Other: # Voids 4 Date of Last Bowel Movement 02/22/18 # Bowel Movements 0 Weight On Admission 75 kg <Vaibhav Terrell - Last Filed: 02/22/18 23:12> Results - Labs CBC & Chem 7: 02/22/18 05:55 02/22/18 05:55 Labs: Laboratory Results - last 24 hr 02/21/18 02/21/18 02/21/18 15:30 15:30 15:30 WBC 7.3 RBC 3.93 L Hgb 11.1 L Hct 33.8 L MCV 85.9 MCH 28.3 MCHC 32.9 RDW 14.0 Plt Count 240 MPV 9.2 Neut % (Auto) 59.9 Lymph % (Auto) 26.3 [place] % (Auto) 12.5 H Eos % (Auto) 0.9 Baso % (Auto) 0.4 Neut # (Auto) 4.4 Lymph # (Auto) 1.9 [place] # (Auto) 0.9 Eos # (Auto) 0.1 Baso # (Auto) 0.0 WBC Differential . Differential Comment Auto diff final PT 33.3 H INR 3.3 APTT Sodium 142 Potassium 3.6 Chloride 103 Carbon Dioxide 31.9 Anion Gap 7 BUN 20 H Creatinine 1.26 H Estimated GFR 40 L Random Glucose 99 Calcium 8.9 Total Bilirubin 0.4 AST 17 ALT 20 Alkaline Phosphatase 78 Total Protein 7.4 Albumin 3.5 Blood Type Antibody Screen 02/21/18 02/21/18 02/22/18 15:30 15:30 05:50 WBC RBC Hgb Hct MCV MCH MCHC RDW Plt Count MPV Neut % (Auto) Lymph % (Auto) [place] % (Auto) Eos % (Auto) Baso % (Auto) Neut # (Auto) Lymph # (Auto) [place] # (Auto) Eos # (Auto) Baso # (Auto) WBC Differential Differential Comment PT 29.5 H INR 2.9 APTT 37.8 H Sodium Potassium Chloride Carbon Dioxide Anion Gap BUN Creatinine Estimated GFR Random Glucose Calcium Total Bilirubin AST ALT Alkaline Phosphatase Total Protein Albumin Blood Type B Positive Antibody Screen Negative 02/22/18 02/22/18 05:55 05:55 WBC 5.7 RBC 3.55 L Hgb 10.0 L Hct 30.5 L MCV 86.0 MCH 28.1 MCHC 32.7 RDW 14.0 Plt Count 211 MPV 8.7 Neut % (Auto) 52.4 Lymph % (Auto) 30.9 [place] % (Auto) 14.6 H Eos % (Auto) 1.6 Baso % (Auto) 0.5 Neut # (Auto) 3.0 Lymph # (Auto) 1.7 [place] # (Auto) 0.8 Eos # (Auto) 0.1 Baso # (Auto) 0.0 WBC Differential . Differential Comment Auto diff final PT INR APTT Sodium 142 Potassium 3.2 L Chloride 101 Carbon Dioxide 31.6 Anion Gap 9 BUN 22 H Creatinine 1.27 H Estimated GFR 40 L Random Glucose 100 Calcium 8.4 L Total Bilirubin AST ALT Alkaline Phosphatase Total Protein Albumin Blood Type Antibody Screen - Imaging Impressions GI Bleed Scan Nuclear Medicine 02/21/18 15:20 CONCLUSION: 1. Negative GI bleeding study. <Jewell Bravo - Last Filed: 02/22/18 08:40> - Labs CBC & Chem 7: 02/22/18 13:07 02/22/18 05:55 Labs: Laboratory Results - last 24 hr 02/22/18 02/22/18 02/22/18 05:50 05:55 05:55 WBC 5.7 RBC 3.55 L Hgb 10.0 L Hct 30.5 L MCV 86.0 MCH 28.1 MCHC 32.7 RDW 14.0 Plt Count 211 MPV 8.7 Neut % (Auto) 52.4 Lymph % (Auto) 30.9 [place] % (Auto) 14.6 H Eos % (Auto) 1.6 Baso % (Auto) 0.5 Neut # (Auto) 3.0 Lymph # (Auto) 1.7 [place] # (Auto) 0.8 Eos # (Auto) 0.1 Baso # (Auto) 0.0 WBC Differential . Differential Comment Auto diff final PT 29.5 H INR 2.9 Sodium 142 Potassium 3.2 L Chloride 101 Carbon Dioxide 31.6 Anion Gap 9 BUN 22 H Creatinine 1.27 H Estimated GFR 40 L Random Glucose 100 Calcium 8.4 L 02/22/18 13:07 WBC 6.8 RBC 3.57 L Hgb 10.1 L Hct 30.7 L MCV 86.0 MCH 28.1 MCHC 32.7 RDW 14.0 Plt Count 202 MPV 8.7 Neut % (Auto) 66.6 Lymph % (Auto) 20.0 [place] % (Auto) 12.1 H Eos % (Auto) 0.9 Baso % (Auto) 0.4 Neut # (Auto) 4.6 Lymph # (Auto) 1.4 [place] # (Auto) 0.8 Eos # (Auto) 0.1 Baso # (Auto) 0.0 WBC Differential . Differential Comment Auto diff final PT INR Sodium Potassium Chloride Carbon Dioxide Anion Gap BUN Creatinine Estimated GFR Random Glucose Calcium <XanderVaibhav Chamorro - Last Filed: 02/22/18 23:12> Assessment and Plan (1) Hematochezia Status: Acute Code(s): K92.1 - Melena - Plan Assessment: - GI bleed- Pt reports maroon colored blood in her stool that began yesterday morning, initially mixed in with formed stool, had multiple BMs throughout the day and with each episode reports her stool became increasingly loose. Last BM was prior to arrival to hospital. Reports fecal urgency, denies incontinence. Some abdominal discomfort in her mid abdomen associated to BMs and resolves after BM. Denies history of GIB. Of note on Coumadin for a-fib, INR 3.3 on arrival. Also reports taking [employer] backache medicine in the morning for weeks. Last colonoscopy approximately 10 years ago and she does not recall any abnormal findings. Denies family history of colon cancer. NM bleeding scan negative H/H 06/05.5 - Epigastric discomfort- states began yesterday- Some nausea, denies emesis. Does not think she has had previous EGD As stated above, takes [employer] backache medicine which is believed to be an NSAID Plan: EGD and colonoscopy tomorrow Obtain consent Clear liquids today Golytely prep NPO after MN Monitor H/H 4 U FFP starting at 3 am Obtain consent for blood products Recheck INR in AM Further recommendations based on clinical course and results of endoscopic procedures Pt has been seen and examined by myself and Dr. Terrell and this note is written on his behalf <Jewell Bravo - Last Filed: 02/22/18 08:40> (1) Hematochezia Status: Acute Code(s): K92.1 - Melena - Attending Attestation Patient seen and examined Agree with above Continue with current supportive care Monitor labs EGD colonoscopy tomorrow We will correct coagulopathy with fresh frozen plasma <Vaibhav Terrell - Last Filed: 02/22/18 23:12>
[2018-02-22] MEDS ORDERED: Potassium Chloride 10 MEQ ER Capsule PO ONE (11:00)
--- NOTE | 2018-02-22 11:12 | P.PNIM ---
Subjective Interval history: Pt is an 87 y/o F with h/o CKD3, CHF, and atrial fibrillation on coumadin therapy. Pt was admitted to [facility] with c/o several episodes of rectal bleeding. Pt's Hg was 11.1 (02/21). and now 10.0 (02/22). Pt denies previous episodes of rectal bleeding. Pt denies abdominal pain. Pt denies n/v. Pt denies any further rectal bleeding since arrival at [place]. Pt is tolerating clear liquid diet. Physical Exam Vital signs: Vital Signs 02/21/18 14:22 02/21/18 14:35 02/21/18 15:30 Temperature 98.1 F Pulse Rate 70 69 69 Respiratory Rate 18 16 16 Blood Pressure 182/81 H 133/96 H 133/96 H Pulse Oximetry 95 97 94 L 02/21/18 15:34 02/21/18 18:30 02/21/18 18:46 Temperature Pulse Rate 70 Respiratory Rate 16 Blood Pressure 133/94 H Pulse Oximetry 93 L 98 94 L 02/21/18 23:56 02/22/18 03:40 02/22/18 04:00 Temperature 98.4 F 97.6 F Pulse Rate 70 70 Respiratory Rate 16 16 Blood Pressure 167/76 H 183/81 H 158/80 H Pulse Oximetry 95 89 L 02/22/18 07:36 Temperature 97.7 F Pulse Rate 70 Respiratory Rate 16 Blood Pressure 170/84 H Pulse Oximetry 93 L Intake & Output 02/21/18 02/22/18 02/22/18 18:59 06:59 18:59 Weight 74.936 kg 75 kg Other: Weight On Admission 75 kg Narrative: GENERAL: This is a well-nourished, well-developed patient, in no apparent distress. CARDIOVASCULAR: Regular rate and rhythm without murmurs, gallops, or rubs. RESPIRATORY: Clear to auscultation. Breath sounds equal bilaterally. No wheezes , rales, or rhonchi. GASTROINTESTINAL: Abdomen soft, non-tender, nondistended. Normal active bowel sounds MUSCULOSKELETAL: Extremities without clubbing, cyanosis, or edema. NEURO: Alert & Oriented x4 to person, place, time, situation. Moves all ext x4 Results - Labs CBC & Chem 7: 02/22/18 05:55 02/22/18 05:55 - Imaging Impressions GI Bleed Scan Nuclear Medicine 02/21/18 15:20 CONCLUSION: 1. Negative GI bleeding study. Assessment and Plan - Assessment (1) Hematochezia Code(s): K92.1 - Melena Status: Acute Plan: - Pt is an 87 y/o F with h/o CKD3, CHF, and atrial fibrillation on coumadin therapy. - Pt was admitted to [facility] with c/o several episodes of rectal bleeding. - Pt's Hg was 11.1 (02/21). and now 10.0 (02/22). - Pt denies previous episodes of rectal bleeding. - Pt denies abdominal pain. Pt denies n/v. - Pt denies any further rectal bleeding since arrival at [place]. - Pt is tolerating clear liquid diet. - Pt has been seen by Gastroenterology (02/22) - Pt will undergo EGD/Colonoscopy (02/23) - IV Protonix 40mg BID - IVFs - Repeat CBC at 1PM and in AM - SCDs for DVT prophylaxis - supportive care (2) Acute blood loss anemia Code(s): D62 - Acute posthemorrhagic anemia Status: Acute Plan: - see above (3) Supratherapeutic INR Code(s): R79.1 - Abnormal coagulation profile Status: Acute Plan: - FFP ordered - repeat INR in AM
[2018-02-22] MEDS: Furosemide 40 MG Tablet PO SCH ×3 (11:50→19:39)
[2018-02-22 13:36] LABS: Baso % (Auto) 0.4 % (0.0-2.0); Eos # (Auto) 0.1 th/mm3 (0.0-0.4); Eos % (Auto) 0.9 % (0.0-4.0); Hematocrit 30.7 % (35.0-46.0); Hemoglobin 10.1 gm/dL (11.6-15.3); Lymph # (Auto) 1.4 th/mm3 (1.0-4.8); Mean Corpuscular HGB Conc 32.7 % (32.0-36.0); Mean Corpuscular Hemoglobin 28.1 pg (27.0-34.0); Mean Platelet Volume 8.7 fL (7.0-11.0); Mono # (Auto) 0.8 th/mm3 (0.0-0.9); Mono % (Auto) 12.1 % (0.0-8.0); Neut # (Auto) 4.6 th/mm3 (1.8-7.7); Neut % (Auto) 66.6 % (16.0-70.0); Platelet Count 202 th/mm3 (150-450); Red Blood Count 3.57 mil/mm3 (4.00-5.30); White Blood Count 6.8 th/mm3 (4.0-11.0)
[2018-02-22] MEDS: Pantoprazole Inj 40 MG Vial IV.PUSH SCH (14:39)
[2018-02-22] MEDS: KCL 20 mEq/NACL 0.45% Inj 1,000 ML IV.CONT SCH (14:51)
[2018-02-22] MEDS: Ascorbic Acid 500 MG Tablet PO SCH (14:52)
[2018-02-22] MEDS: Sertraline 50 MG Tablet PO SCH (14:53)
[2018-02-22] MEDS: dilTIAZem CD 240 MG Capsule PO SCH (14:56)
[2018-02-22] MEDS: Senna/Docusate Sodium 8.6/50 MG Tablet PO SCH ×4 (14:59→20:26)
[2018-02-22] MEDS: Estradiol 1 MG Tablet PO SCH (15:05)
[2018-02-22] MEDS: Acetaminophen 500 MG Tablet PO SCH ×2 (15:06→20:26)
[2018-02-22] MEDS: Levothyroxine 50 MCG Tablet PO SCH (15:17)
[2018-02-22] MEDS ORDERED: Carboxymethylcellulose 0.5% Opth Drops 15 ML Bottle EACH EYE PRN (16:00)
[2018-02-22] MEDS ORDERED: PEG 3350/E-Lyte Soln 4000 ML Bottle PO ONE (16:00)
[2018-02-23] MEDS: KCL 20 mEq/NACL 0.45% Inj 1,000 ML IV.CONT SCH (01:23)
[2018-02-23] MEDS: Pantoprazole Inj 40 MG Vial IV.PUSH SCH ×2 (01:23→10:40)
[2018-02-23] MEDS ORDERED: Chlorhexidine Gluconate 2% 1 Pack (2 Cloths) TOPICAL SCH (02:15)
[2018-02-23] MEDS ORDERED: Sodium Chlor 0.9% Inj 500 ML IV.SIG SCH (03:00)
[2018-02-23] MEDS: Levothyroxine 50 MCG Tablet PO SCH (06:26)
[2018-02-23 07:54] LABS: Baso % (Auto) 0.7 % (0.0-2.0); Eos # (Auto) 0.1 th/mm3 (0.0-0.4); Eos % (Auto) 2.5 % (0.0-4.0); Hematocrit 31.8 % (35.0-46.0); Hemoglobin 10.1 gm/dL (11.6-15.3); Lymph # (Auto) 1.7 th/mm3 (1.0-4.8); Lymph % (Auto) 29.3 % (9.0-44.0); Mean Corpuscular HGB Conc 31.9 % (32.0-36.0); Mean Corpuscular Hemoglobin 27.3 pg (27.0-34.0); Mean Corpuscular Volume 85.8 fL (80.0-100.0); Mean Platelet Volume 8.9 fL (7.0-11.0); Mono # (Auto) 0.7 th/mm3 (0.0-0.9); Mono % (Auto) 12.4 % (0.0-8.0); Neut # (Auto) 3.2 th/mm3 (1.8-7.7); Neut % (Auto) 55.1 % (16.0-70.0); Platelet Count 198 th/mm3 (150-450); Red Blood Count 3.71 mil/mm3 (4.00-5.30); Red Cell Distribution Width 14.3 % (11.6-17.2); White Blood Count 5.9 th/mm3 (4.0-11.0)
[2018-02-23 08:14] LABS: Calcium 7.8 mg/dL (8.5-10.1); Carbon Dioxide 31.9 meq/L (21.0-32.0); Magnesium 1.8 mg/dL (1.5-2.5); Potassium 3.1 meq/L (3.5-5.1)
[2018-02-23] MEDS: dilTIAZem CD 240 MG Capsule PO SCH (10:40)
[2018-02-23] MEDS: Ascorbic Acid 500 MG Tablet PO SCH (10:41)
[2018-02-23] MEDS: Estradiol 1 MG Tablet PO SCH (10:41)
[2018-02-23] MEDS: Acetaminophen 500 MG Tablet PO SCH (10:41)
[2018-02-23] MEDS: Furosemide 40 MG Tablet PO SCH ×3 (10:42→17:20)
[2018-02-23] MEDS: Sertraline 50 MG Tablet PO SCH (10:42)
[2018-02-23] MEDS: Senna/Docusate Sodium 8.6/50 MG Tablet PO SCH ×3 (10:44→22:01)
--- NOTE | 2018-02-23 15:44 | P.PCN ---
Date of procedure: 02/23/18 Pre-op diagnosis: GI bleed Procedure: PROCEDURE PERFORMED EGD followed by colonoscopy with snare polypectomy INDICATION FOR PROCEDURE GI bleed PROCEDURE: The procedure, risks and benefits were discussed with Patient/POA and informed consent was obtained. Anesthesia sedated Patient with Diprivan. Patient was placed in the left lateral decubitus position. EGD: The Pentax videoscope was introduced through the oropharynx and advanced to the second portion of the duodenum under direct visualization. Retroflexion was performed in the stomach. FINDINGS: The esophagus this was normal The stomach there was a small hiatal hernia otherwise unremarkable The duodenum this was normal Colonoscopy: The Pentax videoscope was introduced through the rectum and advanced to cecum where the ileocecal valve and appendiceal orifice were identified. Retroflexion was performed in the rectum. Colonic prep was good FINDINGS: Colonic withdrawal time greater than 6 minutes. As the scope was slowly withdrawn colonic mucosa was carefully inspected patient was noted to have 4 polyps one in the distal descending colon and 3 in the distal transverse colon all were sessile medium sized benign-appearing adenomatous appearing all were excised using cold snare technique and retrieved further evaluation the patient was also noted to have moderate to moderately severe diverticulosis of the descending and sigmoid region retroflexion in the rectum was unremarkable so his rectal examination no active bleeding was noted ESTIMATED BLOOD LOSS: None SPECIMENS REMOVED: Colon polyps COMPLICATIONS: None IMPRESSION: Hiatal hernia Colon polyps Diverticulosis PLAN: Await biopsies Advance diet Supportive care If all is stable by tomorrow patient may be discharged from a GI standpoint Anesthesia: MAC Surgeon: Vaibhav Terrell Condition: stable Disposition: floor
--- NOTE | 2018-02-23 20:26 | P.PNIM ---
Subjective Interval history: No new complaints. Physical Exam Vital signs: Vital Signs 02/22/18 23:35 02/23/18 03:47 02/23/18 04:00 Temperature 98.2 F 98.7 F 98.7 F Pulse Rate 70 78 78 Respiratory Rate 16 18 20 Blood Pressure 141/66 H 152/71 H 132/58 L Pulse Oximetry 93 L 98 02/23/18 05:28 02/23/18 05:37 02/23/18 08:00 Temperature 98.8 F 98.7 F 97.5 F L Pulse Rate 78 78 70 Respiratory Rate 20 20 16 Blood Pressure 132/58 L 132/58 L 187/78 H Pulse Oximetry 98 94 L 02/23/18 10:06 02/23/18 10:30 02/23/18 11:23 Temperature 97.8 F 97.8 F 98.6 F Pulse Rate 94 H 92 H 88 Respiratory Rate 18 16 18 Blood Pressure 180/78 H 168/78 H 160/88 H Pulse Oximetry 96 02/23/18 12:03 02/23/18 15:57 Temperature 98.6 F 96.9 F L Pulse Rate 78 70 Respiratory Rate 18 18 Blood Pressure 137/88 113/58 L Pulse Oximetry 95 Intake & Output 02/23/18 02/23/18 02/24/18 06:59 18:59 06:59 Intake Total 1210 / 1210 557 / 557 Balance 1210 / 1210 557 / 557 Intake: IV 1000 / 1000 Potassium Chlor 20 mEq/NACL 0. 1000 / 1000 45% Inj 1,000 ML @ 50 mls/hr IV .CONT .Q20H [facility] Rx#:[id number] Anesthesia Amount 300 / 300 Intake (Blood Product) Amt 210 / 210 257 / 257 Plasma Thawed 5 Day Acda Unit 221 / 221 [id number] Plasma Thawed 5 Day Acda Unit 210 / 210 [id number] Plasma Thawed 5 Day Acda Unit 0 / 0 [id number] Plasma Thawed 5 Day Cp2d Unit 0 / 0 36 / 36 [id number] Other: Date of Last Bowel Movement 02/22/18 02/22/18 Narrative: GENERAL: This is a well-nourished, well-developed patient, in no apparent distress. CARDIOVASCULAR: Regular rate and rhythm without murmurs, gallops, or rubs. RESPIRATORY: Clear to auscultation. Breath sounds equal bilaterally. No wheezes , rales, or rhonchi. GASTROINTESTINAL: Abdomen soft, non-tender, nondistended. Normal active bowel sounds MUSCULOSKELETAL: Extremities without clubbing, cyanosis, or edema. NEURO: Alert & Oriented x4 to person, place, time, situation. Moves all ext x4 Results - Labs CBC & Chem 7: 02/24/18 06:00 02/23/18 07:00 Laboratory Results - last 24 hr 02/23/18 02/23/18 02/23/18 00:07 07:00 07:00 WBC 5.9 RBC 3.71 L Hgb 10.1 L Hct 31.8 L MCV 85.8 MCH 27.3 MCHC 31.9 L RDW 14.3 Plt Count 198 MPV 8.9 Neut % (Auto) 55.1 Lymph % (Auto) 29.3 Lyman % (Auto) 12.4 H Eos % (Auto) 2.5 Baso % (Auto) 0.7 Neut # (Auto) 3.2 Lymph # (Auto) 1.7 Lyman # (Auto) 0.7 Eos # (Auto) 0.1 Baso # (Auto) 0.0 WBC Differential . Differential Comment Auto diff final Sodium 142 Potassium 3.1 L Chloride 101 Carbon Dioxide 31.9 Anion Gap 9 BUN 16 Creatinine 1.11 H Estimated GFR 46 L Random Glucose 93 Calcium 7.8 L Magnesium 1.8 Blood Bank Comment - Imaging GI Bleed Scan Nuclear Medicine 02/21/18 15:20 CONCLUSION: 1. Negative GI bleeding study. Assessment and Plan - Assessment (1) Hematochezia Code(s): K92.1 - Melena Status: Acute Plan: - Pt is an 87 y/o F with h/o CKD3, CHF, and atrial fibrillation on coumadin therapy. - Pt was admitted to [facility] with c/o several episodes of rectal bleeding. - Pt's Hg was 11.1 (02/21). and now 10.0 (02/22). - Pt denies previous episodes of rectal bleeding. - Pt denies abdominal pain. Pt denies n/v. - Pt denies any further rectal bleeding since arrival at [place]. - Pt is tolerating regular diet - Colonoscopy (02/23) by Dr. Vaibhav Terrell - 4 polyps one in the distal descending colon - 3 in the distal transverse colon - all were sessile medium sized benign-appearing adenomatous appearing all were excised using cold snare technique - Pathology pending - EGD (02/23) by Dr. Vaibhav Terrell - small hiatal hernia - change protonix to PO - repeat CBC in AM - if Hg remains stable, then d/c to home 02/24 - Pt/ (by phone) update. - SCDs for DVT prophylaxis - supportive care (2) Acute blood loss anemia Code(s): D62 - Acute posthemorrhagic anemia Status: Acute Plan: - see above (3) Supratherapeutic INR Code(s): R79.1 - Abnormal coagulation profile Status: Acute Plan: - FFP ordered - repeat INR in AM
[2018-02-23 20:32] LABS: INR 1.6 Ratio
[2018-02-24 00:43] VITALS: RESP 16
[2018-02-24] MEDS: Senna/Docusate Sodium 8.6/50 MG Tablet PO SCH (06:23)
[2018-02-24] MEDS: Levothyroxine 50 MCG Tablet PO SCH (06:23)
[2018-02-24 07:40] LABS: Baso # (Auto) 0.1 th/mm3 (0.0-0.2); Baso % (Auto) 0.6 % (0.0-2.0); Eos # (Auto) 0.1 th/mm3 (0.0-0.4); Eos % (Auto) 1.6 % (0.0-4.0); Hematocrit 30.7 % (35.0-46.0); Hemoglobin 10.3 gm/dL (11.6-15.3); Lymph # (Auto) 1.9 th/mm3 (1.0-4.8); Lymph % (Auto) 21.7 % (9.0-44.0); Mean Corpuscular HGB Conc 33.5 % (32.0-36.0); Mean Corpuscular Hemoglobin 28.4 pg (27.0-34.0); Mono # (Auto) 1.1 th/mm3 (0.0-0.9); Mono % (Auto) 12.2 % (0.0-8.0); Neut # (Auto) 5.5 th/mm3 (1.8-7.7); Neut % (Auto) 63.9 % (16.0-70.0); Platelet Count 201 th/mm3 (150-450); Red Blood Count 3.61 mil/mm3 (4.00-5.30); Red Cell Distribution Width 14.3 % (11.6-17.2); White Blood Count 8.7 th/mm3 (4.0-11.0)
[2018-02-24 07:53] VITALS: BP 158/72; PULSE 70; TEMP 97.6; O2SAT 87
--- NOTE | 2018-02-24 09:14 | P.DS ---
<Hollie Gonzales E - Last Filed: 05/23/18 15:22> Date of admission: 02/21/18 19:47 Primary care physician: Dio Abernathy Attending physician on discharge: Suleman Ureña Anticipated date of discharge: 02/24/18 Brief History from admission: Patient is an 87-year-old female past medical history significant for congestive heart failure, chronic kidney disease, atrial fibrillation, on warfarin, who presents with complaints of red blood per rectum that she noticed today. Patient states that she woke up this morning when to go to use the restroom at which time she wiped herself and blood was on the toilet paper. She states that she had several such episodes of bloody bowel movements throughout the day with intermittent loose stools. States that this never happened to her before. Patient states that she takes warfarin but has not had it checked in over a month with her being out of town. Patient denies any fever or any history of diverticulosis diverticulitis, peptic ulcer disease, liver disease. In addition to the level of the blood in the rectum she has associated epigastric abdominal pain left lower quadrant abdominal pain mild in description associated with nausea but without vomiting. An evaluation in the emergency room hemoglobin was stable INR was slightly elevated at 3.3 and she did have guaiac positive stools. She will be admitted now will be started on Protonix drip will ask GI consult as the level was 3.3 vitamin K will be held for now we will just recheck INR in a.m. DS: Diagnosis - Discharge Diagnosis (1) Acute blood loss anemia Status: Acute (2) Hematochezia Status: Acute (3) Supratherapeutic INR Status: Acute (4) CHF (congestive heart failure) Status: Acute DS: Summary Hospital Course: Hematochezia Acute blood loss anemia Supra-therapeutic INR - Pt is an 87 y/o F with h/o CKD3, CHF, and atrial fibrillation on Coumadin therapy. Pt was admitted to [facility] with c/o several episodes of rectal bleeding. Pt's Hg was 11.1 (02/21) and repeat decreased to 10.0 (02/22). GI bleeding scan at admission was negative. Her Coumadin was held at admission as her INR was 3.3. Pt denied any further rectal bleeding after arrival at [place]. GI was consulted at admission. Pt was transfused with FFP on 02/23/18. Pt underwent evaluation with EGD/Colonoscopy (02/23) by Dr. Vaibhav Terrell which revealed mall hiatal hernia, 4 polyps one in the distal descending colon, 3 in the distal transverse colon, all were sessile medium sized benign-appearing adenomatous appearing all were excised using cold snare technique. Pathology pending. Hgb remained stable and pt was tolerating regular diet prior to discharge. Her INR on 02/23 was 1.6. - Time Spent with Patient Total time spent providing and/or coordinating discharge services: Greater than 30 minutes - Quality: VTE Deep Vein Thrombosis/Pulmonary Embolism Present on Admission: No Exam Vital signs: Vital Signs 02/23/18 10:06 02/23/18 10:30 02/23/18 11:23 Temperature 97.8 F 97.8 F 98.6 F Pulse Rate 94 H 92 H 88 Respiratory Rate 18 16 18 Blood Pressure 180/78 H 168/78 H 160/88 H Pulse Oximetry 96 02/23/18 12:03 02/23/18 15:57 02/24/18 00:00 Temperature 98.6 F 96.9 F L 98.0 F Pulse Rate 78 70 69 Respiratory Rate 18 18 16 Blood Pressure 137/88 113/58 L 139/71 Pulse Oximetry 95 95 02/24/18 07:49 Temperature 97.6 F Pulse Rate 70 Respiratory Rate 16 Blood Pressure 158/72 H Pulse Oximetry 87 L Intake & Output 02/23/18 02/24/18 02/24/18 18:59 06:59 18:59 Intake Total 557 / 557 Balance 557 / 557 Intake: Anesthesia Amount 300 / 300 Intake (Blood Product) Amt 257 / 257 Plasma Thawed 5 Day Acda Unit 221 / 221 [id number] Plasma Thawed 5 Day Acda Unit 0 / 0 [id number] Plasma Thawed 5 Day Cp2d Unit 36 / 36 [id number] Other: Date of Last Bowel Movement 02/22/18 Narrative: GENERAL: NAD, AAOx3 CARDIOVASCULAR: Irregular RESPIRATORY: Breath sounds equal bilaterally. No accessory muscle use. GASTROINTESTINAL: Abdomen soft, non-tender, nondistended. MUSCULOSKELETAL: No cyanosis, or edema. BACK: Nontender without obvious deformity. No CVA tenderness. Results Procedures completed during hospitalization: See above Pending studies at discharge: Pending at discharge 02/23/18 Surgical [PTH] Routine Labs on day of discharge: Labs from last 24 hours 02/24/18 02/23/18 02/23/18 06:00 19:36 00:07 WBC 8.7 RBC 3.61 L Hgb 10.3 L Hct 30.7 L MCV 85.0 MCH 28.4 MCHC 33.5 RDW 14.3 Plt Count 201 MPV 9.0 Neut % (Auto) 63.9 Lymph % (Auto) 21.7 Karnes % (Auto) 12.2 H Eos % (Auto) 1.6 Baso % (Auto) 0.6 Neut # (Auto) 5.5 Lymph # (Auto) 1.9 Karnes # (Auto) 1.1 H Eos # (Auto) 0.1 Baso # (Auto) 0.1 WBC Differential . Differential Comment Auto diff final PT 16.0 H D INR 1.6 Blood Bank Comment - Impressions ITS Impressions GI Bleed Scan Nuclear Medicine 02/21/18 15:20 CONCLUSION: 1. Negative GI bleeding study. <Suleman Ureña - Last Filed: 05/25/18 12:00> Date of admission: 02/21/18 19:47 Primary care physician: Dio Abernathy DS: Diagnosis - Discharge Diagnosis (1) Hematochezia Status: Acute (2) Acute blood loss anemia Status: Acute (3) Supratherapeutic INR Status: Acute DS: Summary Hospital Course: The exam, history, and the medical decision-making described in the above note were completed with the assistance of the mid-level provider. I reviewed and agree with the findings presented. I attest that I had a [id number] encounter with the patient on the same day, and personally performed and documented my assessment and findings in the medical record. Patient examined. Assessment and plan formulated with Hollie Gonzales PA-C. I agree with the above. - Time Spent with Patient Total time spent providing and/or coordinating discharge services: Greater than 30 minutes Results Completed studies during hospitalization: Pending at discharge 02/23/18 08:13 Surgical [PTH] Routine - Impressions ITS Impressions GI Bleed Scan Nuclear Medicine 02/21/18 15:20 CONCLUSION: 1. Negative GI bleeding study. Discharge Plan - Discharge Order Discharge Orders: Discharge Order (Routine); Ordered 02/24/18 Ordered By: Hollie Gonzales - Discharge Details Anticipated Discharge Date: 02/24/18 - Physicians Team Primary Care Provider: Dio Abernathy Attending Provider: Suleman Ureña Other Providers: Vaibhav Terrell MD
[2018-02-24] MEDS: Ascorbic Acid 500 MG Tablet PO SCH (09:18)
[2018-02-24] MEDS: Estradiol 1 MG Tablet PO SCH (09:18)
[2018-02-24] MEDS: dilTIAZem CD 240 MG Capsule PO SCH (09:18)
[2018-02-24] MEDS: Sertraline 50 MG Tablet PO SCH (09:19)
[2018-02-24] MEDS: Furosemide 40 MG Tablet PO SCH (09:20)
--- NOTE | 2018-02-24 16:23 | ECG ---
Date Performed: 02/23/2018 Time Performed: 13:07:15 PTAGE: 87 years EKG: ELECTRONIC VENTRICULAR PACEMAKER ABNORMAL RHYTHM ECG Since PREVIOUS TRACING , no significant change noted PREVIOUS TRACIN09/13/2015 05.25 DOCTOR: Nadir Alonso Interpretating Date/Time 02/24/2018 16:22:20
== END 2018-02-24 12:57 | disposition home or self-care (01) ==
LOC: NEDA 14:13 → NEPGCP 14:13 → NEPE 14:13 → NEPGCP 22:17
PROVIDERS: ADMIT Hospitalist; ATTEND Hospitalist
PROC: COLONOS (2018-02-23 14:57)
PROC: PANENDO (2018-02-23 14:57)

== ENCOUNTER 2018-06-19 11:11 | Observation (INO) ==
--- NOTE | 2018-06-19 14:05 | ED ---
HPI General Chief complaint: Weakness Stated complaint: fever/weakness Time Seen by Provider: 06/19/18 14:01 Source: patient and family Mode of arrival: ambulatory Limitations: no limitations History of Present Illness HPI Narrative: Patient complains of 2 days history of generalized weakness getting to the point where she is unable to ambulate on her own power. Patient is complaining of a sore throat, as well as generalized aches and chills like activity Dr. ruiz is geospatial systems integrator pcp is dr salvador Patient has medical history significant for hypercholesterolemia hypertension pacemaker pulmonary hypertension hypothyroidism chronic kidney disease CHF MD Complaint: Reports generalized weakness Onset (ago): day(s) (2) Duration: progressively worsening Location: Reports generalized Migration: Reports none Severity: mild Severity scale (1-10): 2 Relieving factors: none Exacerbating factors: none Associated symptoms: Reports denies other symptoms Related Data Home Medications Medication Instructions Recorded Confirmed Osteo Bi-Flex PO DAILY 02/21/18 acetaminophen [Tylenol Extra 500 mg PO BID 02/21/18 02/21/18 Strength] artifi.tears(hypromellose)(PF) 1 drp OPHTHALMIC (EYE) Q4-6H 02/21/18 02/21/18 ascorbic acid (vitamin C) [Vitamin 1,000 mg PO DAILY 02/21/18 02/21/18 C] calcium carbonate-vitamin D3 02/21/18 02/21/18 [Calcium 600 with Vitamin D3] clonidine HCl 0.1 mg PO BID 02/21/18 02/21/18 cyanocobalamin (vitamin B-12) 1,000 mcg PO BID 02/21/18 02/21/18 [Vitamin B-12] diltiazem HCl 240 mg PO DAILY 02/21/18 02/21/18 estradiol 1 mg PO DAILY 02/21/18 02/21/18 furosemide 40 mg PO QNOON 02/21/18 02/21/18 furosemide 80 mg PO QAM 02/21/18 02/21/18 [id number] C-Mn 02/21/18 [Glucosamine-Chondroitin Complx] levothyroxine 175 mcg PO DAILY 02/21/18 02/21/18 lovastatin 40 mg PO QPM 02/21/18 02/21/18 multivitamin [Multiple Vitamins] 1 tab PO DAILY 02/21/18 02/21/18 omega-3 fatty acids [Fish Oil 1,200 mg PO BID 02/21/18 02/21/18 Concentrate] potassium chloride [K-Tab] 20 meq PO BID 02/21/18 02/22/18 ranitidine HCl 300 mg PO DAILY 02/21/18 02/21/18 sertraline 50 mg PO DAILY 02/21/18 02/21/18 warfarin 2 mg PO DAILY 02/21/18 02/21/18 Allergies Allergy/AdvReac Type Severity Reaction Status Date / Time REYNA Inhibitors Allergy Severe Hives Verified 06/19/18 11:35 amlodipine Allergy Severe Hives Verified 06/19/18 11:35 ARB-Angiotensin Receptor Allergy Severe Hives Verified 06/19/18 11:35 Antagonist Calcium Channel Blocking Allergy Severe Hives Verified 06/19/18 11:35 Agent Dilt ciprofloxacin Allergy Severe Hives Verified 06/19/18 11:35 enalaprilat Allergy Severe Hives Verified 06/19/18 11:35 hydrochlorothiazide Allergy Severe Hives Verified 06/19/18 11:35 niacin Allergy Severe Hives Verified 06/19/18 11:35 ramipril Allergy Severe Hives Verified 06/19/18 11:35 Thiazides Allergy Severe Hives Verified 06/19/18 11:35 valsartan Allergy Severe Hives Verified 06/19/18 11:35 Review of Systems ROS: all other systems reviewed are negative PMFSH History History Provided By: Family Member Medical History Medical History Atrial fibrillation (Acute) Atypical chest pain (Acute) CHF (congestive heart failure) (Acute) CKD (chronic kidney disease) stage 3, GFR 30-59 ml/min (Acute) Edema leg (Acute) History of hysterectomy (Acute) Hypercholesteremia (Acute) Hypertension (Acute) Hypothyroidism (Acute) Pacemaker (Acute) Pulmonary HTN (Acute) Surgical History Surgical History History of bunionectomy of both great toes (Acute) Hx of vein stripping (Acute) Social History Social History Substance History: No History of Abuse Second Hand Smoke Exposure: No Smoking Status: Former smoker How Often Do You Have a Drink Containing Alcohol: Never Recent Travel in [facility] within the Last 8 Weeks: No Recent Out of Country Travel within the Last 8 Weeks: No Exam Narrative Exam Narrative: GENERAL: elderly female required nearly full support by her as well as electronic sales and service technician and myself to try to transfer the patient from wheelchair to rney SKIN: Warm and dry. HEAD: Atraumatic. Normocephalic. EYES: Pupils equal and round. No scleral icterus. No injection or drainage. ENT: No nasal bleeding or discharge. Mucous membranes pink and dry oral mucosa. Erythematous oropharynx and posterior as well as a thick whitish exudate over the hard palate soft palate and part of the tongue, possible oral thrush NECK: Trachea midline. No JVD. CARDIOVASCULAR: Regular rate and rhythm. no rubs or gallops RESPIRATORY: No accessory muscle use. Clear to auscultation. Breath sounds equal bilaterally. GASTROINTESTINAL: Abdomen soft, non-tender, nondistended. No rebound or guarding MUSCULOSKELETAL: Extremities without clubbing, cyanosis, or edema. No obvious deformities. NEUROLOGICAL: Awake and alert. Patient does not have any lateralizing weakness , however she does have generalized weakness, unable to support her own weight, normal speech. Course Initial Documented Vital Signs Temperature 97.7 F 06/19/18 11:30 Pulse Rate 71 06/19/18 11:30 Respiratory Rate 25 H 06/19/18 11:30 Blood Pressure 133/77 06/19/18 11:30 Pulse Oximetry 95 06/19/18 11:30 Last Documented Vital Signs Temperature 97.7 F 06/19/18 11:30 Pulse Rate 69 06/19/18 14:44 Respiratory Rate 16 06/19/18 14:46 Blood Pressure 163/74 H 06/19/18 14:44 Pulse Oximetry 99 06/19/18 14:46 Sign Out Sign Out Data: Patient Sign Out occurred on 06/19/18 at 15:11. Patient's care was discussed, and care was transferred from Ramone Rich to Magnolia Adams MD. Sign Out Comment: 87-year-old female here for generalized weakness, pending labs and dispo Last updated by Ramone Rich at 06/19/18 14:43 Post-Handoff Eval: I received care of patient in check out. At time of check out, labs pending with plan for admission. Labs reveal hemoconcentration concerning for dehydration. She was given rocephin and fluconazole by Dr Rich. She has been admitted to Dr Ureña for dehydration, deconditioning and failure to thrive. Medical Decision Making MDM Narrative Medical Screen Exam Complete: Yes Emergency Medical Condition: Yes Lab Data Result diagrams: 06/19/18 14:38 06/19/18 14:38 Lab Results 06/19/18 06/19/18 06/19/18 Range/Units 14:33 14:38 14:38 WBC 11.7 H (4.0-11.0) th/mm3 RBC 5.58 H (4.00-5.30) mil/mm3 Hgb 16.5 H (11.6-15.3) gm/dL Hct 50.4 H (35.0-46.0) % MCV 90.3 (80.0-100.0) fL MCH 29.5 (27.0-34.0) pg MCHC 32.7 (32.0-36.0) % RDW 15.0 (11.6-17.2) % Plt Count 247 (150-450) th/mm3 MPV 8.9 (7.0-11.0) fL Neut % (Auto) 67.2 (16.0-70.0) % Lymph % (Auto) 19.5 (9.0-44.0) % Lipscomb % (Auto) 12.3 H (0.0-8.0) % Eos % (Auto) 0.4 (0.0-4.0) % Baso % (Auto) 0.6 (0.0-2.0) % Neut # (Auto) 7.9 H (1.8-7.7) th/mm3 Lymph # (Auto) 2.3 (1.0-4.8) th/mm3 Lipscomb # (Auto) 1.4 H (0.0-0.9) th/mm3 Eos # (Auto) 0.0 (0.0-0.4) th/mm3 Baso # (Auto) 0.1 (0.0-0.2) th/mm3 WBC Differential . Differential Comment Auto diff final PT (9.8-11.6) sec INR Ratio APTT (23.4-31.7) sec Sodium 131 L (136-145) meq/L Potassium 4.7 (3.5-5.1) meq/L Chloride 93 L (98-107) meq/L Carbon Dioxide 27.7 (21.0-32.0) meq/L Anion Gap 10 (5-15) meq/L BUN 19 H (7-18) mg/dL Creatinine 1.73 H (0.50-1.00) mg/dL Estimated GFR 28 L (>89) mL/min POC Glucose 111 H (68-110) mg/dl Random Glucose 101 (74-106) mg/dL Lactic Acid (0.4-2.0) mmol/L Calcium 10.8 H (8.5-10.1) mg/dL Total Bilirubin 0.9 (0.2-1.0) mg/dL AST 77 H (15-37) U/L ALT 31 (10-53) U/L Alkaline Phosphatase 100 (45-117) U/L Total Creatine Kinase 141 (26-192) U/L CK-MB (CK-2) Less than 1.0 (0.5-3.6) ng/mL Troponin I Less than 0.02 L (0.02-0.05) ng/mL Total Protein 8.5 H (6.4-8.2) g/dL Albumin 3.6 (3.4-5.0) g/dL Lipase 136 (73-393) U/L Urine Color (Yellw/Straw) Urine Clarity (Clear) Urine pH (5.0-8.5) Ur Specific [place] (1.002-1.035) Urine Protein (Neg-Trace) mg/dL Urine Glucose (UA) (Negative) mg/dL Urine Ketones (Negative) mg/dL Urine Occult Blood (Negative) Urine Nitrate (Negative) Urine Bilirubin (Negative) Urine Urobilinogen (Less than 2) mg/dL Ur Leukocyte Esterase (Negative) Urine RBC (0-3) /hpf Urine WBC (0-5) /hpf Ur Squamous Epith Cells (0-5) /hpf Hyaline Casts (0-3) /lpf Urine Mucus (Occasional) /lpf Micro UA Comment Ur Microscopic Review Urine Culture Comments 06/19/18 06/19/18 06/19/18 Range/Units 14:38 14:38 15:45 WBC (4.0-11.0) th/mm3 RBC (4.00-5.30) mil/mm3 Hgb (11.6-15.3) gm/dL Hct (35.0-46.0) % MCV (80.0-100.0) fL MCH (27.0-34.0) pg MCHC (32.0-36.0) % RDW (11.6-17.2) % Plt Count (150-450) th/mm3 MPV (7.0-11.0) fL Neut % (Auto) (16.0-70.0) % Lymph % (Auto) (9.0-44.0) % Lipscomb % (Auto) (0.0-8.0) % Eos % (Auto) (0.0-4.0) % Baso % (Auto) (0.0-2.0) % Neut # (Auto) (1.8-7.7) th/mm3 Lymph # (Auto) (1.0-4.8) th/mm3 Lipscomb # (Auto) (0.0-0.9) th/mm3 Eos # (Auto) (0.0-0.4) th/mm3 Baso # (Auto) (0.0-0.2) th/mm3 WBC Differential Differential Comment PT 14.2 H (9.8-11.6) sec INR 1.4 Ratio APTT 31.5 (23.4-31.7) sec Sodium (136-145) meq/L Potassium (3.5-5.1) meq/L Chloride (98-107) meq/L Carbon Dioxide (21.0-32.0) meq/L Anion Gap (5-15) meq/L BUN (7-18) mg/dL Creatinine (0.50-1.00) mg/dL Estimated GFR (>89) mL/min POC Glucose (68-110) mg/dl Random Glucose (74-106) mg/dL Lactic Acid 2.0 (0.4-2.0) mmol/L Calcium (8.5-10.1) mg/dL Total Bilirubin (0.2-1.0) mg/dL AST (15-37) U/L ALT (10-53) U/L Alkaline Phosphatase (45-117) U/L Total Creatine Kinase (26-192) U/L CK-MB (CK-2) (0.5-3.6) ng/mL Troponin I (0.02-0.05) ng/mL Total Protein (6.4-8.2) g/dL Albumin (3.4-5.0) g/dL Lipase (73-393) U/L Urine Color Yellow (Yellw/Straw) Urine Clarity Clear (Clear) Urine pH 6.0 (5.0-8.5) Ur Specific [place] 1.008 (1.002-1.035) Urine Protein Negative (Neg-Trace) mg/dL Urine Glucose (UA) Negative (Negative) mg/dL Urine Ketones Negative (Negative) mg/dL Urine Occult Blood Negative (Negative) Urine Nitrate Negative (Negative) Urine Bilirubin Negative (Negative) Urine Urobilinogen Less than 2 (Less than 2) mg/dL Ur Leukocyte Esterase Negative (Negative) Urine RBC Less than 1 (0-3) /hpf Urine WBC 2 (0-5) /hpf Ur Squamous Epith Cells <1 (0-5) /hpf Hyaline Casts 7 (0-3) /lpf Urine Mucus Few H (Occasional) /lpf Micro UA Comment Culture not ind Ur Microscopic Review Not Reportable Urine Culture Comments Culture not ind Imaging Data Radiologist's impression: Chest X-Ray 06/19/18 14:01 CONCLUSION: No acute disease Discharge Plan Discharge Disposition Patient Disposition: 30 Still Patient Discharge Condition Condition: Stable Discharge Details Diagnosis: Acute dehydration, Adult failure to thrive, Thrush Physicians Team ED Provider: Magnolia Adams Primary Care Provider: Dio Salvador Rxs /Orders / Referrals /Forms Prescriptions: No Action multivitamin [Multiple Vitamins] Tablet 1 tab PO DAILY RF: 0 furosemide 40 mg Tablet 40 mg PO QNOON RF: 0 furosemide 40 mg Tablet 80 mg PO QAM RF: 0 levothyroxine 175 mcg Tablet 175 mcg PO DAILY RF: 0 ascorbic acid (vitamin C) [Vitamin C] 1,000 mg Tablet 1,000 mg PO DAILY RF: 0 clonidine HCl 0.1 mg Tablet 0.1 mg PO BID RF: 0 omega-3 fatty acids [Fish Oil Concentrate] 1,000 mg Capsule 1,200 mg PO BID RF: 0 diltiazem HCl 240 mg Capsule,Ext.Rel 24h Degradable 240 mg PO DAILY RF: 0 [id number]-vjdfmsqvc-bgo C-Mn [Glucosamine-Chondroitin Complx] Capsule RF: 0 lovastatin 40 mg Tablet 40 mg PO QPM RF: 0 cyanocobalamin (vitamin B-12) [Vitamin B-12] 1,000 mcg Tablet 1,000 mcg PO BID RF: 0 acetaminophen [Tylenol Extra Strength] 500 mg Tablet 500 mg PO BID RF: 0 ranitidine HCl 300 mg Capsule 300 mg PO DAILY RF: 0 warfarin 2 mg Tablet 2.5 mg PO DAILY RF: 0 estradiol 2 mg Tablet 2 mg PO DAILY RF: 0 sertraline 50 mg Tablet 50 mg PO DAILY RF: 0 artifi.tears(hypromellose)(PF) 0.3 % Drops 1 drp OPHTHALMIC (EYE) Q4-6H RF: 0 calcium carbonate-vitamin D3 [Calcium 600 with Vitamin D3] 600 mg(1,500mg) - 400 unit Capsule RF: 0 potassium chloride [K-Tab] 20 mEq Tablet Extended Release 20 meq PO BID RF: 0 Osteo Bi-Flex PO DAILY RF: 0 Discharge Interventions Interventions: Vital Signs Last Done: 06/19/18 14:44 Status ED Status: With Doctor
--- NOTE | 2018-06-19 14:21 | XR ---
EXAM DATE: 06/19/2018 2:17 PM EST AGE/SEX: 87 years / Female INDICATIONS: Confusion, weakness, slurring speech. CLINICAL DATA: This is the patient's initial encounter. Patient reports that signs and symptoms have been present for 4 - 6 days and indicates a pain score of 0/10. MEDICAL/SURGICAL HISTORY: Cardiovascular disease. Myocardial infarction. Pacemaker. COMPARISON: [facility] [place], CHEST SINGLE AP, 09/14/2015. . FINDINGS: A pacing implement is present with control pack over left upper chest. Calcified granuloma in the lat eral left lung base. No evidence of focal infiltrate or pleural effusion. Cardiac contours are satisf actory. CONCLUSION: No acute disease Electronically signed by: Jorge Kan MD 06/19/2018 2:20 PM EST
[2018-06-19] MEDS ORDERED: Fluconazole 100 MG Tablet PO ONE (14:59)
[2018-06-19 15:13] LABS: Baso # (Auto) 0.1 th/mm3 (0.0-0.2); Baso % (Auto) 0.6 % (0.0-2.0); Eos % (Auto) 0.4 % (0.0-4.0); Hematocrit 50.4 % (35.0-46.0); Hemoglobin 16.5 gm/dL (11.6-15.3); Lymph # (Auto) 2.3 th/mm3 (1.0-4.8); Lymph % (Auto) 19.5 % (9.0-44.0); Mean Corpuscular HGB Conc 32.7 % (32.0-36.0); Mean Corpuscular Hemoglobin 29.5 pg (27.0-34.0); Mean Corpuscular Volume 90.3 fL (80.0-100.0); Mean Platelet Volume 8.9 fL (7.0-11.0); Mono # (Auto) 1.4 th/mm3 (0.0-0.9); Mono % (Auto) 12.3 % (0.0-8.0); Neut # (Auto) 7.9 th/mm3 (1.8-7.7); Neut % (Auto) 67.2 % (16.0-70.0); Platelet Count 247 th/mm3 (150-450); Red Blood Count 5.58 mil/mm3 (4.00-5.30); White Blood Count 11.7 th/mm3 (4.0-11.0)
[2018-06-19 15:25] LABS: Activated Partial Thrombo Time 31.5 sec (23.4-31.7); INR 1.4 Ratio; Prothrombin Time 14.2 sec (9.8-11.6)
[2018-06-19 15:41] LABS: Alanine Aminotransferase 31 U/L (10-53); Albumin 3.6 g/dL (3.4-5.0); Anion Gap 10 meq/L (5-15); Aspartate Aminotransferase 77 U/L (15-37); Blood Urea Nitrogen 19 mg/dL (7-18); Calcium 10.8 mg/dL (8.5-10.1); Carbon Dioxide 27.7 meq/L (21.0-32.0); Chloride 93 meq/L (98-107); Glomerular Filtration Rate 28 mL/min (>89); Glucose,Random 101 mg/dL (74-106); Lipase 136 U/L (73-393); Potassium 4.7 meq/L (3.5-5.1); Sodium 131 meq/L (136-145)
[2018-06-19 15:45] LABS: Alkaline Phosphatase 100 U/L (45-117); Creatine Kinase 141 U/L (26-192); Total Protein 8.5 g/dL (6.4-8.2)
[2018-06-19 15:59] LABS: Bilirubin,Urine Negative (Negative); Clarity,Urine Clear (Clear); Color,Urine Yellow (Yellw/Straw); Glucose,Urine (UA) Negative (Negative); Hyaline Casts,Urine 7 /lpf (0-3); Leukocyte Esterase,Urine Negative (Negative); Mucus,Urine Few /lpf (Occasional); Nitrite,Urine Negative (Negative); Specific Gravity,Urine 1.008 (1.002-1.035); Squamous Epithelial Cell,Urine <1 /hpf (0-5)
[2018-06-19] MEDS ORDERED: Acetaminophen 325 MG Tablet PO PRN (16:40)
[2018-06-19] MEDS ORDERED: HYPROMELLOSE EACH EYE SCH (17:00)
[2018-06-19] MEDS: HYPROMELLOSE 2.5% EACH EYE SCH ×2 (19:23→21:48)
[2018-06-19] MEDS: OPTH EACH EYE SCH ×2 (19:23→21:48)
[2018-06-19] MEDS: Nystatin Liq 500,000 UNIT/5 ML UDC SWISH-SWAL SCH ×2 (19:28→21:48)
--- NOTE | 2018-06-19 19:44 | P.HP ---
[facility]: Dio Soares MD Chief Complaint: 2 days of increasing generalized weakness and ability to ambulate by self History of Present Illness: 87-year-old white female, presents to [place] with complaints of 2 days of generalized weakness inability to ambulate without help. Patient has a medical history significant for hypercholesterolemia hypertension pacemaker for possible probable atrial fibrillation pulmonary hypertension and CKD. Patient is a poor historian and really cannot get much history from her extremely weak. Apparently was in the hospital 2 weeks ago up in another state [place] is going to try and obtain those records. She does carry a past medical history of congestive heart failure chronic kidney disease atrial fibrillation who had been on warfarin with a GI bleed in February patient denies any fever any history of abdominal problems other than the GI bleed of note when she had the GI bleed her Coumadin level was slightly elevated and INR she underwent an which revealed some polyps in the distal colon and transverse colon benign in appearance she underwent a negative bleeding scan as well. EDG/colonoscopy. Patient at this time has poor skin turgor consistent with significant dehydration and may have thrush as well will be admitted at this time for IV hydration and will start nystatin swish and swallow. In review of lab work they are consistent with dehydration elevated BUN and creatinine and elevated hemoglobin. - Diagnosis (1) Acute dehydration (2) Adult failure to thrive (3) Thrush (4) CHF (congestive heart failure) Review of Systems unobtainable due to mental status Constitutional: Reports anorexia, Reports fatigue PMFSH - History History Provided By: Significant Other - Medical History Medical History: Medical History (Last Reviewed 06/19/18 @ 19:38 by Jatin Harris MD) Atrial fibrillation Atypical chest pain CHF (congestive heart failure) CKD (chronic kidney disease) stage 3, GFR 30-59 ml/min Edema leg History of hysterectomy Hypercholesteremia Hypertension Hypothyroidism Pacemaker Pulmonary HTN - Surgical History Surgical History: Surgical History (Last Reviewed 06/19/18 @ 19:38 by Jatin Harris MD) History of bunionectomy of both great toes Hx of vein stripping - Tobacco History Second Hand Smoke Exposure: No Tobacco Use In Past 30 Days: No Smoking Status: Former smoker Tobacco Type: Cigarettes - Alcohol History How Often Do You Have a Drink Containing Alcohol: Never - Substance Use History Substance History: No History of Abuse - Travel History Recent Travel in the [place] Within the Last 8 Weeks: Yes Recent Travel Out of the Country Within the Last 8 Weeks: No - Immunization History Tetanus Immunization: >5 Years Medications and Allergies Active Medications: Active Medications Acetaminophen (Tylenol) 650 mg PO Q4H PRN PRN Reason: Temp > 100.4 Al Hydroxide/Mg Hydroxide (Milk Of Magnesia Liq) 30 ml PO Q12H PRN PRN Reason: Mild Constipation Artificial Tears (Goniosol 2.5% Opth Drops) 1 drops EACH EYE Q4H [facility] Last Admin: 06/19/18 19:23 Dose: 1 drops Clonidine HCl (Catapres) 0.1 mg PO BID [facility] Diltiazem HCl (Cardizem Cd 24hr) 240 mg PO DAILY [facility] Famotidine (Pepcid) 10 mg PO BID [facility] Potassium Chloride/Sodium Chloride (Ns + Kcl 20 Meq Inj) 1,000 mls @ 84 mls/hr IV.CONT .[id number] [facility] Last Admin: 06/19/18 19:24 Dose: 84 mls/hr Levothyroxine Sodium (Synthroid) 75 mcg PO DAILY@0600 [facility] Levothyroxine Sodium (Synthroid) 100 mcg PO DAILY@0600 [facility] Miscellaneous (Pill Splitter) 1 each OTHER UNSCH PRN PRN Reason: PILL SPLITTER Multivitamins (Theragran) 1 tab PO DAILY [facility] Nystatin (Mycostatin Liq) 5 ml SWISH-SWAL QID [facility] Last Admin: 06/19/18 19:28 Dose: 5 ml Ondansetron HCl (Zofran Inj) 4 mg IV.PUSH Q6H PRN PRN Reason: NAUSEA OR VOMITING Pravastatin Sodium (Pravachol) 40 mg PO QPM [facility] Last Admin: 06/19/18 19:24 Dose: 40 mg Senna/Docusate Sodium (Diane-Colace) 1 tab PO BID [facility] Sertraline HCl (Zoloft) 50 mg PO DAILY [facility] Allergies Allergy/AdvReac Type Severity Reaction Status Date / Time REYNA Inhibitors Allergy Severe Hives Verified 06/19/18 11:35 amlodipine Allergy Severe Hives Verified 06/19/18 11:35 ARB-Angiotensin Receptor Allergy Severe Hives Verified 06/19/18 11:35 Antagonist Calcium Channel Blocking Allergy Severe Hives Verified 06/19/18 11:35 Agent Dilt ciprofloxacin Allergy Severe Hives Verified 06/19/18 11:35 enalaprilat Allergy Severe Hives Verified 06/19/18 11:35 hydrochlorothiazide Allergy Severe Hives Verified 06/19/18 11:35 niacin Allergy Severe Hives Verified 06/19/18 11:35 ramipril Allergy Severe Hives Verified 06/19/18 11:35 Thiazides Allergy Severe Hives Verified 06/19/18 11:35 valsartan Allergy Severe Hives Verified 06/19/18 11:35 Home Medications Medication Instructions Recorded Confirmed Type Osteo Bi-Flex PO DAILY 02/21/18 History acetaminophen [Tylenol Extra 500 mg PO BID 02/21/18 02/21/18 History Strength] artifi.tears(hypromellose)(PF) 1 drp OPHTHALMIC (EYE) Q4-6H 02/21/18 02/21/18 History ascorbic acid (vitamin C) [Vitamin 1,000 mg PO DAILY 02/21/18 02/21/18 History C] calcium carbonate-vitamin D3 02/21/18 02/21/18 History [Calcium 600 with Vitamin D3] clonidine HCl 0.1 mg PO BID 02/21/18 06/19/18 History cyanocobalamin (vitamin B-12) 1,000 mcg PO BID 02/21/18 06/19/18 History [Vitamin B-12] diltiazem HCl 240 mg PO DAILY 02/21/18 06/19/18 History estradiol 2 mg PO DAILY 02/21/18 06/19/18 History furosemide 40 mg PO QNOON 02/21/18 06/19/18 History furosemide 80 mg PO QAM 02/21/18 06/19/18 History [id number]-syt C-Mn 02/21/18 History [Glucosamine-Chondroitin Complx] levothyroxine 175 mcg PO DAILY 02/21/18 06/19/18 History lovastatin 40 mg PO QPM 02/21/18 06/19/18 History multivitamin [Multiple Vitamins] 1 tab PO DAILY 02/21/18 06/19/18 History omega-3 fatty acids [Fish Oil 1,200 mg PO BID 02/21/18 06/19/18 History Concentrate] potassium chloride [K-Tab] 20 meq PO BID 07/18/18 11/13/18 History ranitidine HCl 300 mg PO DAILY 02/21/18 06/19/18 History sertraline 50 mg PO DAILY 02/21/18 06/19/18 History warfarin 2.5 mg PO DAILY 02/21/18 06/19/18 History Exam Vital signs: Vital Signs 06/19/18 11:30 06/19/18 14:44 06/19/18 14:45 Temperature 97.7 F Pulse Rate 71 69 Respiratory Rate 25 H 24 14 Blood Pressure 133/77 163/74 H Pulse Oximetry 95 98 06/19/18 14:46 06/19/18 17:32 Temperature Pulse Rate Respiratory Rate 16 16 Blood Pressure Pulse Oximetry 99 Intake & Output 06/19/18 06/19/18 06/20/18 06:59 18:59 06:59 Intake Total 100 / 100 Balance 100 / 100 Weight 70.76 kg Intake: IV 100 / 100 Rocephin Inj 1,000 MG In NS Inj 100 / 100 100 ML @ 200 mls/hr IV.SIG ONCE ONE Rx#:[id number] Other: Weight On Admission 70.76 kg Narrative: GENERAL: SKIN: skin tugor poor HEAD: Normocephalic. EYES: No scleral icterus. No injection or drainage. NECK: Supple, trachea midline. No JVD or lymphadenopathy. CARDIOVASCULAR: Regular rate and rhythm without murmurs, gallops, or rubs. RESPIRATORY: Breath sounds equal bilaterally. No accessory muscle use. GASTROINTESTINAL: Abdomen soft, non-tender, nondistended. MUSCULOSKELETAL: No cyanosis, or edema. BACK: Nontender without obvious deformity. No CVA tenderness. neuro no obvious abnormalities diffuse motor and sensory weakness Results - Labs CBC & Chem 7: 06/19/18 14:38 06/19/18 14:38 Labs: Laboratory Results - last 24 hr 06/19/18 06/19/18 06/19/18 14:33 14:38 14:38 WBC 11.7 H RBC 5.58 H Hgb 16.5 H Hct 50.4 H MCV 90.3 MCH 29.5 MCHC 32.7 RDW 15.0 Plt Count 247 MPV 8.9 Neut % (Auto) 67.2 Lymph % (Auto) 19.5 Harding % (Auto) 12.3 H Eos % (Auto) 0.4 Baso % (Auto) 0.6 Neut # (Auto) 7.9 H Lymph # (Auto) 2.3 Harding # (Auto) 1.4 H Eos # (Auto) 0.0 Baso # (Auto) 0.1 WBC Differential . Differential Comment Auto diff final PT INR APTT Sodium 131 L Potassium 4.7 Chloride 93 L Carbon Dioxide 27.7 Anion Gap 10 BUN 19 H Creatinine 1.73 H Estimated GFR 28 L POC Glucose 111 H Random Glucose 101 Lactic Acid Calcium 10.8 H Total Bilirubin 0.9 AST 77 H ALT 31 Alkaline Phosphatase 100 Total Creatine Kinase 141 CK-MB (CK-2) Less than 1.0 Troponin I Less than 0.02 L Total Protein 8.5 H Albumin 3.6 Lipase 136 Urine Color Urine Clarity Urine pH Ur Specific Converse Urine Protein Urine Glucose (UA) Urine Ketones Urine Occult Blood Urine Nitrate Urine Bilirubin Urine Urobilinogen Ur Leukocyte Esterase Urine RBC Urine WBC Ur Squamous Epith Cells Hyaline Casts Urine Mucus Micro UA Comment Ur Microscopic Review Urine Culture Comments 06/19/18 06/19/18 06/19/18 14:38 14:38 15:45 WBC RBC Hgb Hct MCV MCH MCHC RDW Plt Count MPV Neut % (Auto) Lymph % (Auto) Harding % (Auto) Eos % (Auto) Baso % (Auto) Neut # (Auto) Lymph # (Auto) [place]ing # (Auto) Eos # (Auto) Baso # (Auto) WBC Differential Differential Comment PT 14.2 H INR 1.4 APTT 31.5 Sodium Potassium Chloride Carbon Dioxide Anion Gap BUN Creatinine Estimated GFR POC Glucose Random Glucose Lactic Acid 2.0 Calcium Total Bilirubin AST ALT Alkaline Phosphatase Total Creatine Kinase CK-MB (CK-2) Troponin I Total Protein Albumin Lipase Urine Color Yellow Urine Clarity Clear Urine pH 6.0 Ur Specific Converse 1.008 Urine Protein Negative Urine Glucose (UA) Negative Urine Ketones Negative Urine Occult Blood Negative Urine Nitrate Negative Urine Bilirubin Negative Urine Urobilinogen Less than 2 Ur Leukocyte Esterase Negative Urine RBC Less than 1 Urine WBC 2 Ur Squamous Epith Cells <1 Hyaline Casts 7 Urine Mucus Few H Micro UA Comment Culture not ind Ur Microscopic Review Not Reportable Urine Culture Comments Culture not ind - Imaging Impressions Chest X-Ray 06/19/18 14:01 CONCLUSION: No acute disease - ECG Interpretation: pacer rhythm Caprini VTE Risk Assessment Caprini VTE Risk Assessment: Moderate/High Risk (score >= 2) Caprini Risk Assessment Model: Point Value = 1 Point Value = 2 Point Value = 3 Point Value = 5 Age 41-60 Minor surgery BMI > 25 kg/m2 Swollen legs Varicose veins or History of unexplained or recurrent spontaneous Oral contraceptives or hormone replacement Sepsis (< 1 month) Serious lung disease, including pneumonia (< 1 month) Abnormal pulmonary function Acute myocardial infarction Congestive heart failure (< 1 month) History of inflammatory bowel disease Medical patient at bed rest Age 61-74 Arthroscopic surgery Major open surgery (> 45 min) Laparoscopic surgery (> 45 min) Malignancy Confined to bed (> 72 hours) Immobilizing plaster cast Central venous access Age >= 75 History of VTE Family history of VTE Factor V Leiden Prothrombin [id number] Lupus anticoagulant Anticardiolipin antibodies Elevated serum homocysteine Heparin-induced thrombocytopenia Other congenital or acquired thrombophilia Stroke (< 1 month) Elective arthroplasty Hip, pelvis, or leg fracture Acute spinal cord injury (< 1 month) Prophylaxis Regimen: Total Risk Factor Score Risk Level Prophylaxis Regimen 0-1 Low Early ambulation 2 Moderate Order ONE of the following: *Sequential Compression Device (SCD) *Heparin 5000 units SQ BID 3-4 Higher Order ONE of the following medications: *Heparin 5000 units SQ TID *Enoxaparin/Lovenox 40 mg SQ daily (WT < 150 kg, CrCl > 30 mL/min) *Enoxaparin/Lovenox 30 mg SQ daily (WT < 150 kg, CrCl > 10-29 mL/min) *Enoxaparin/Lovenox 30 mg SQ BID (WT < 150 kg, CrCl > 30 mL/min) AND/OR *Sequential Compression Device (SCD) 5 or more Highest Order ONE of the following medications: *Heparin 5000 units SQ TID (Preferred with Epidurals) *Enoxaparin/Lovenox 40 mg SQ daily (WT < 150 kg, CrCl > 30 mL/min) *Enoxaparin/Lovenox 30 mg SQ daily (WT < 150 kg, CrCl > 10-29 mL/min) *Enoxaparin/Lovenox 30 mg SQ BID (WT < 150 kg, CrCl > 30 mL/min) AND *Sequential Compression Device (SCD) Assessment and Plan - Assessment (1) Acute dehydration Code(s): E86.0 - Dehydration Status: Acute Plan: rehydrate patient at 84 cc/hr follow up labs (2) Adult failure to thrive Code(s): R62.7 - Adult failure to thrive Status: Acute Plan: do not know actual nutritional state will probably need nutrition to see (3) Thrush Code(s): B37.0 - Candidal stomatitis Status: Acute Plan: nystatin swish and swallow (4) CHF (congestive heart failure) Code(s): I50.9 - Heart failure, unspecified Status: Acute Plan: no evidence of CHF will follow hold any diuretics - Plan further plan as case develops Code Status: full Discussed Condition With: patient
[2018-06-19] MEDS: Senna/Docusate Sodium 8.6/50 MG Tablet PO SCH (21:48)
[2018-06-19] MEDS: Famotidine 20 MG Tablet PO SCH (21:48)
[2018-06-20] MEDS: OPTH EACH EYE SCH ×6 (02:05→22:17)
[2018-06-20] MEDS: HYPROMELLOSE 2.5% EACH EYE SCH ×6 (02:05→22:17)
[2018-06-20] MEDS: Levothyroxine 75 MCG Tablet PO SCH (06:09)
[2018-06-20] MEDS: Levothyroxine 100 MCG Tablet PO SCH (06:09)
[2018-06-20 07:15] LABS: Baso # (Auto) 0.1 th/mm3 (0.0-0.2); Baso % (Auto) 0.6 % (0.0-2.0); Eos % (Auto) 0.3 % (0.0-4.0); Hematocrit 45.4 % (35.0-46.0); Hemoglobin 15.2 gm/dL (11.6-15.3); Lymph # (Auto) 1.9 th/mm3 (1.0-4.8); Lymph % (Auto) 18.6 % (9.0-44.0); Mean Corpuscular HGB Conc 33.4 % (32.0-36.0); Mean Corpuscular Volume 89.8 fL (80.0-100.0); Mean Platelet Volume 8.8 fL (7.0-11.0); Mono % (Auto) 9.6 % (0.0-8.0); Neut # (Auto) 7.3 th/mm3 (1.8-7.7); Neut % (Auto) 70.9 % (16.0-70.0); Platelet Count 223 th/mm3 (150-450); Red Blood Count 5.06 mil/mm3 (4.00-5.30); White Blood Count 10.3 th/mm3 (4.0-11.0)
[2018-06-20 08:05] LABS: Calcium 9.1 mg/dL (8.5-10.1); Carbon Dioxide 26.5 meq/L (21.0-32.0)
[2018-06-20] MEDS: Famotidine 20 MG Tablet PO SCH ×2 (08:05→22:16)
[2018-06-20] MEDS: Senna/Docusate Sodium 8.6/50 MG Tablet PO SCH ×2 (08:05→22:17)
[2018-06-20] MEDS: dilTIAZem CD 240 MG Capsule PO SCH (08:05)
[2018-06-20] MEDS: Nystatin Liq 500,000 UNIT/5 ML UDC SWISH-SWAL SCH ×4 (08:06→22:15)
[2018-06-20] MEDS: Sertraline 50 MG Tablet PO SCH (10:19)
--- NOTE | 2018-06-20 10:20 | P.PNIM ---
Subjective Interval history: Pt complains this morning of abdominal discomfort with generalized weakness. The pt and her at bedside at not very good historians. In review of outpt records. She was recently seen at [facility] urgent care on 06/15 for ongoing abdominal pain. Per that record the pt had been seen at an ED in [place] on 06/07/18 with complaints of abdominal pain. The physician in the W documented that her discharge paperwork from [place] diagnosed her with "gastritis" after having a CBC with diff, CMP, Lipase, two sets of negative troponins, and a negative CT abd/pelvis with contrast. She was given Mylanta, Benadryl, Reglan, Zofran, IVF, and Fentanyl when she was in the ED at that time and discharged with recommendation to followup with her PCP. Pt was reportedly not prescribed any medications at the time of discharge from the ED according to the [facility] records. Upon her visit to [facility] on 06/15/18 she was prescribed Augmentin for treatment of suspected early diverticulitis and given Carafate for possible gastritis. Pt reports that over the last few days the pt has grown increasingly weaker and he was having to attempt to carry her around the house. The pt and her report that she had been eating and drinking without difficulty prior to admission. There were no reported fevers or chills. Pt has reportedly been having regular normal BMs. During a previous admission in 02/2018, pt underwent EGD/Colonoscopy (02/23/18) by Dr. Vaibhav Terrell which revealed mall hiatal hernia, 4 polyps one in the distal descending colon, 3 in the distal transverse colon Pts BP this morning was quite elevated with systolic over 200. Pt was given her regular morning meds and BP is starting to come down, last BP reading was 163/79 Physical Exam Vital signs: Last Vital Signs Temp 97.7 F 06/20/18 09:01 Pulse 71 06/20/18 09:01 Resp 16 06/20/18 09:01 BP 180/84 H 06/20/18 09:01 Pulse Ox 96 06/20/18 09:01 Narrative: General: NAD, AAOx3 Chest: CTA Cardiac: Regular Abd: +BS, soft, protuberant, diffusely tender, no rebound Ext: No edema Results Labs CBC & Chem 7: 06/20/18 06:40 06/20/18 06:40 Imaging Chest X-Ray 06/19/18 14:01 CONCLUSION: No acute disease Assessment and Plan Assessment (1) Acute dehydration: Code(s): E86.0 - Dehydration Status: Acute (2) Adult failure to thrive: Code(s): R62.7 - Adult failure to thrive Status: Acute (3) Thrush: Code(s): B37.0 - Candidal stomatitis Status: Acute (4) CHF (congestive heart failure): Code(s): I50.9 - Heart failure, unspecified Status: Acute Plan Generalized weakness Abdominal pain - Pt is an 87 y/o female with CHF, CKD, stage 3, COPD, and atrial fibrillation on chronic anticoagulation with Coumadin who presented to the ED on 06/19/18 with complaints of abdominal discomfort with generalized weakness. The pt and her at bedside at not very good historians. - In review of outpt records. She was recently seen at [facility] urgent care on for ongoing abdominal pain. Per that record the pt had been seen at an ED in [place] on 06/07/18 with complaints of abdominal pain. The physician in the W documented that her discharge paperwork from [place] diagnosed her with "gastritis" after having a CBC with diff, CMP, Lipase, two sets of negative troponins, and a negative CT abd/pelvis with contrast. She was given Mylanta, Benadryl, Reglan, Zofran, IVF, and Fentanyl when she was in the ED at that time and discharged with recommendation to followup with her PCP. Pt was reportedly not prescribed any medications at the time of discharge from the ED according to the [facility] records. - Upon her visit to [facility] on 06/15/18 she was prescribed Augmentin for treatment of suspected early diverticulitis and given Carafate for possible gastritis. UA at that time was negative. - Pt reports that over the last few days the pt has grown increasingly weaker and he was having to attempt to carry her around the house. The pt and her report that she had been eating and drinking without difficulty prior to admission. There were no reported fevers or chills. Pt has reportedly been having regular normal BMs. During a previous admission in 02/2018, pt underwent EGD/Colonoscopy (02/23/18) by Dr. Vaibhav Terrell which revealed mall hiatal hernia , 4 polyps one in the distal descending colon, 3 in the distal transverse colon - Check KUB this morning - No reports BMs overnight - Pt is tolerating oral intake - Pt was given IVF overnight. Stop IVF this morning to avoid any fluid overload - Replace her potassium HTN - Pts BP this morning was quite elevated with systolic over 200. - Pt was given her regular morning meds and BP is starting to come down, last BP reading was 163/79 - Pt was continued on her home dose of Diltiazem 240mg daily, CLonidine 0.1mg HS , Lasix 80mg in AM and 40mg in PM A. fib s/p PPM - COnt. Diltiazem - INR subtherapeutic at 1.6 at admission, repeat IBR 1.4 on 06/20 - Will discuss with the pt and her whether or not to continue Coumadin. Progress Note: Quality VTE Deep Vein Thrombosis/Pulmonary Embolism Present on Admission: No _ (1) CHF (congestive heart failure) Qualifiers: Heart failure chronicity: Heart failure type:
--- NOTE | 2018-06-20 10:21 | P.CONPAL ---
Consult Service: Palliative Care Requesting Physician: Suleman Ureña Reason for Consult: a. To assist with evaluation and management of symptoms including: debility and failure to thrive b. To assist medical decision maker(s) with: better understanding of current medical conditions; weighing benefits/burdens of medical treatment options; making medical treatment decisions. Primary Care Provider: Dio Soares MD History of Present Illness History of Present Illness: DRAFT Mrs. Whitfield is a 87-year-old female that presented to [facility] emergency room on 06/19/18 with complaints of generalized weakness for the past 2 days. She states that she has been getting weaker and unable to ambulate on her own. She also complains of a sore throat generalized aches and chills. She has a past medical history significant for A. fib with Coumadin therapy, hypertension, hypothyroidism, chronic kidney disease, CHF, pulmonary hypertension, hyperlipidemia, and pacer placement. Of note she was admitted here February 2018 for GI bleed related to Coumadin use. She also has multiple admissions for CHF exacerbation in the past few years. The patient also states that she was admitted in another hospital approximately 2 weeks ago in [facility]. She is unable to clarify the reason is for that admission but states that was for possible cystitis. [facility] is currently attempting to obtain those records. Initial emergency room evaluation revealed: * Temp 97.7, pulse 71, respiratory rate 25, BP 133/77, pulse ox 95% on room air * WBC 11.7, RBC 5.58, Hgb 16.5, HCT 50.4, platelets 274 * NA 137, +4.7, CL 93, CO2 27.7, BUN 19, creatinine 1.73, estimated GFR 28, glucose 101 * Calcium 10.8, total bili 0.9, AST 77, ALT 31, alkaline phosphatase 100, total protein 8.5, lactic acid 2.0 * PT 14.2, INR 1.4, APTT 31.5 * UA: Negative for nitrates and leukocyte Estrace, no culture indicated * CXR: No acute disease Patient was admitted to the observation unit for dehydration, deconditioning, failure to thrive. Palliative care was consulted due to the patient's age and poor conditioning. Upon examination the patient is working with physical therapy. Is able to ambulate around the room using a walker though needs some assist getting up from a sitting to standing position. She was able to get herself back into bed on her own power and needed assist to push up in bed. She verbalizes that she has not been feeling well since her admission 2 weeks ago. Her is bedside and is also able to confirm that she has been getting weaker since approximately 2 weeks ago. He states over the past 2 days he has had to help get her in and out of bed and to the bathroom. He states that she is usually able to ambulate on her own. She usually uses a walker though does not like to. She is usually independent of all ADLs. She still complains of generalized aches though she states it has somewhat improved. She is also complaining of some abdominal pain mostly in the bilateral lower quadrants. Slightly tender to light palpation. Her belly is somewhat protuberant and slightly tympanic. She denies any GI complaints and states that her appetite has been regular though she does not feel that hungry today. She appears to be searching hard for words. She was oriented to herself and to the day. She had trouble naming the year and month. She knew she was in a hospital but could not provide the name, though she was able to describe how she would get here from her home. Throughout her conversation she also had trouble remembering certain words or instances like her 's senior living, or the fact that she had just eaten breakfast. Both the patient and state that this confusion and forgetfulness are new and they feel it has gotten worse but are not unable to give a timeframe for this decline. Function/Cognitive Trajectory: Prior to admit her admission the patient was reportedly independent of ambulation and all ADLs and she was supposed to be using a walker though usually preferred a cane or nothing at all. The couple lives alone in a 2 bedroom condo. They share the cooking and cleaning and both of them are able to drive. Over the past 2 weeks she has declined to the point where her needs to help her in and out of bed and to the bathroom. Review of Systems Constitutional: Reports body ache(s), Reports fatigue, Reports lack of energy, Reports weakness Ears, Nose, Mouth, and Throat: Reports sore throat Musculoskeletal: Reports body aches Neurologic: Reports memory loss PMF - History History Provided By: Significant Other - Medical History Medical History: Medical History (Last Updated 11/14/18 @ 11:34 by KISHORE Fung) Colon polyp Atrial fibrillation Atypical chest pain CHF (congestive heart failure) CKD (chronic kidney disease) stage 3, GFR 30-59 ml/min Edema leg Hypercholesteremia Hypertension Hypothyroidism Pacemaker Pulmonary HTN - Surgical History Surgical History: Surgical History (Last Updated 06/20/18 @ 11:35 by KISHORE Fung) H/O colonoscopy with polypectomy History of permanent cardiac pacemaker placement Hx of esophagogastroduodenoscopy History of bunionectomy of both great toes History of hysterectomy Hx of vein stripping - Family History Family History: Family History (Last Updated 06/20/18 @ 11:36 by KISHORE Fung) Other Cardiovascular disease - Social History I have reviewed the patient's Social History: Yes - Tobacco History Second Hand Smoke Exposure: No Tobacco Use In Past 30 Days: No Smoking Status: Former smoker Tobacco Type: Cigarettes - Alcohol History How Often Do You Have a Drink Containing Alcohol: Never - Substance Use History Substance History: No History of Abuse - Travel History History of Recent Travel: Yes ([facility] over the last 2 weeks) Recent Travel in the [place] Within the Last 8 Weeks: Yes Recent Travel Out of the Country Within the Last 8 Weeks: No - Immunization History Tetanus Immunization: >5 Years Medications and Allergies Active Medications: Active Medications Acetaminophen (Tylenol) 650 mg PO Q4H PRN PRN Reason: Temp > 100.4 Al Hydroxide/Mg Hydroxide (Milk Of [place] Liq) 30 ml PO Q12H PRN PRN Reason: Mild Constipation Artificial Tears (Goniosol 2.5% Opth Drops) 1 drops EACH EYE Q4H [facility] Last Admin: 06/20/18 06:09 Dose: 1 drops Clonidine HCl (Catapres) 0.1 mg PO BID [facility] Last Admin: 06/20/18 08:05 Dose: 0.1 mg Diltiazem HCl (Cardizem Cd 24hr) 240 mg PO DAILY [facility] Last Admin: 06/20/18 08:05 Dose: 240 mg Famotidine (Pepcid) 10 mg PO BID [facility] Last Admin: 06/20/18 08:05 Dose: 10 mg Potassium Chloride/Sodium Chloride (Ns + Kcl 20 Meq Inj) 1,000 mls @ 84 mls/hr IV.CONT .[id number] [facility] Last Admin: 06/20/18 06:08 Dose: 84 mls/hr Levothyroxine Sodium (Synthroid) 75 mcg PO DAILY@0600 [facility] Last Admin: 06/20/18 06:09 Dose: 75 mcg Levothyroxine Sodium (Synthroid) 100 mcg PO DAILY@0600 [facility] Last Admin: 06/20/18 06:09 Dose: 100 mcg Miscellaneous (Pill Splitter) 1 each OTHER UNSCH PRN PRN Reason: PILL SPLITTER Multivitamins (Theragran) 1 tab PO DAILY [facility] Last Admin: 06/20/18 08:06 Dose: 1 tab Nystatin (Mycostatin Liq) 5 ml SWISH-SWAL QID [facility] Last Admin: 06/20/18 08:06 Dose: 5 ml Ondansetron HCl (Zofran Inj) 4 mg IV.PUSH Q6H PRN PRN Reason: NAUSEA OR VOMITING Pravastatin Sodium (Pravachol) 40 mg PO QPM [facility] Last Admin: 06/19/18 19:24 Dose: 40 mg Senna/Docusate Sodium (Diane-Colace) 1 tab PO BID [facility] Last Admin: 06/20/18 08:05 Dose: 1 tab Sertraline HCl (Zoloft) 50 mg PO DAILY [facility] Allergies Allergy/AdvReac Type Severity Reaction Status Date / Time REYNA Inhibitors Allergy Severe Hives Verified 06/19/18 11:35 amlodipine Allergy Severe Hives Verified 06/19/18 11:35 ARB-Angiotensin Receptor Allergy Severe Hives Verified 06/19/18 11:35 Antagonist Calcium Channel Blocking Allergy Severe Hives Verified 06/19/18 11:35 Agent Dilt ciprofloxacin Allergy Severe Hives Verified 06/19/18 11:35 enalaprilat Allergy Severe Hives Verified 06/19/18 11:35 hydrochlorothiazide Allergy Severe Hives Verified 06/19/18 11:35 niacin Allergy Severe Hives Verified 06/19/18 11:35 ramipril Allergy Severe Hives Verified 06/19/18 11:35 Thiazides Allergy Severe Hives Verified 06/19/18 11:35 valsartan Allergy Severe Hives Verified 06/19/18 11:35 Home Medications Medication Instructions Recorded Confirmed Type Osteo Bi-Flex PO DAILY 02/21/18 History acetaminophen [Tylenol Extra 500 mg PO BID 02/21/18 02/21/18 History Strength] artifi.tears(hypromellose)(PF) 1 drp OPHTHALMIC (EYE) Q4-6H 02/21/18 02/21/18 History ascorbic acid (vitamin C) [Vitamin 1,000 mg PO DAILY 02/21/18 02/21/18 History C] calcium carbonate-vitamin D3 02/21/18 02/21/18 History [Calcium 600 with Vitamin D3] clonidine HCl 0.1 mg PO HS 02/21/18 06/20/18 History cyanocobalamin (vitamin B-12) 1,000 mcg PO BID 02/21/18 06/19/18 History [Vitamin B-12] diltiazem HCl 240 mg PO DAILY 02/21/18 06/19/18 History estradiol 2 mg PO DAILY 02/21/18 06/19/18 History furosemide 80 mg PO QAM 02/21/18 06/19/18 History [id number]-tsakxizty-irg C-Mn 02/21/18 History [Glucosamine-Chondroitin Complx] levothyroxine 175 mcg PO DAILY 02/21/18 06/19/18 History lovastatin 40 mg PO QPM 02/21/18 06/19/18 History multivitamin [Multiple Vitamins] 1 tab PO DAILY 02/21/18 06/19/18 History omega-3 fatty acids [Fish Oil 1,200 mg PO BID 02/21/18 06/19/18 History Concentrate] potassium chloride [K-Tab] 20 meq PO BID 02/21/18 06/19/18 History ranitidine HCl 300 mg PO DAILY 02/21/18 06/19/18 History sertraline 50 mg PO DAILY 02/21/18 06/19/18 History warfarin 2.5 mg PO SUSA 02/21/18 06/20/18 History amoxicillin-pot clavulanate 1 tab PO BID 06/20/18 06/20/18 History [Augmentin] furosemide [Lasix] 40 mg PO DAILY@1700 06/20/18 06/20/18 History warfarin 2 mg PO MOTUWETHFR 06/20/18 06/20/18 History Advance Directives Living Will: No Healthcare Surrogate: No Health Care Surrogate Name and Number: Nael Whitfield, /HCP [phone] Power of [employer] Worker: No Documented care wishes: The patient does not have any type of advance directives or documented living will Today's verbally stated goals: Patient's main focus is to get symptom management and attempt to regain strength in hopes of returning to her previous level of functionality. With discussion of CODE STATUS was explained that her given her advanced age that any type of cardiopulmonary resuscitation would most likely not have a favorable outcome. Given this information the patient still wishes to remain in FULL CODE. The patient is open to aggressive treatment but would like a discussion for the risks/benefits/burdens/alternatives of each. Family/friends goals: Her is at bedside and supports the patient's wishes. Ethical and Legal Issues: The patient is currently able to participate in her own healthcare decision making. Should she become incapacitated any time, and in the absence of a documented living will, per [place] statutes healthcare decision making would fall to her Nael Whitfield [phone] by proxy Physical Exam Vital Signs: Vital Signs - 24 hr 06/19/18 11:30 06/19/18 14:44 06/19/18 14:45 Temperature 97.7 F Pulse Rate 71 69 Respiratory Rate 25 H 24 14 Blood Pressure 133/77 163/74 H Pulse Oximetry 95 98 06/19/18 14:46 06/19/18 17:32 06/19/18 19:43 Temperature 98.1 F Pulse Rate 70 Respiratory Rate 16 16 17 Blood Pressure 178/72 H Pulse Oximetry 99 97 06/20/18 00:00 06/20/18 04:00 06/20/18 07:52 Temperature 97.7 F 98.4 F 99.1 F Pulse Rate 70 70 70 Respiratory Rate 20 20 12 Blood Pressure 178/77 H 191/51 H 210/133 H Pulse Oximetry 94 L 97 95 06/20/18 09:01 Temperature 97.7 F Pulse Rate 71 Respiratory Rate 16 Blood Pressure 180/84 H Pulse Oximetry 96 I&O: Intake & Output 06/18/18 06/19/18 06/20/18 06/21/18 06:59 06:59 06:59 06:59 Intake Total 1436 / 1436 Balance 1436 / 1436 Weight 70.76 kg Physical Exam: CONSTITUTIONAL/GENERAL: This is an adequately nourished patient, in no apparent distress. TUBES/LINES/DRAINS: PIV, left internal pacer SKIN: No jaundice, rashes, or lesions. Ecchymoses on upper extremities. No wounds seen anteriorly. Skin temperature appropriate. Not diaphoretic. HEAD: Atraumatic. Normocephalic. EYES: Pupils equal and round and reactive. Extraocular motions intact. No scleral icterus. No injection or drainage. Fundi not examined. ENT: Hearing grossly normal. Nose without bleeding or purulent drainage. Tongue with thick white material, oral mucosa dry NECK: Trachea midline. Supple, nontender. No palpable thyroid enlargement or nodularity. CARDIOVASCULAR: Regular rate and rhythm without murmurs, gallops, or rubs. No JVD. Peripheral pulses symmetric. Trace edema to bilateral lower extremity RESPIRATORY/CHEST: Symmetric, unlabored respirations. Clear to auscultation. Breath sounds equal bilaterally. No wheezes, rales, or rhonchi. GASTROINTESTINAL: Abdomen soft, slightly tender to light palpation particularly bilateral lower quadrants. Lightly distended and tympanic. No hepato- splenomegaly, or palpable masses. No guarding. Bowel sounds present. GENITOURINARY: Without palpable bladder distension. MUSCULOSKELETAL: No joint tenderness or effusion noted. No calf tenderness. No mottling or clubbing. LYMPHATICS: No palpable cervical or supraclavicular adenopathy. NEUROLOGICAL: Awake and alert. Motor and sensory grossly within normal limits. Follows commands. Oriented to self, knows the day unable to name the year or month. Understands that the building she is in the hospital but is unable to give the name of the facility. Appears to be forgetful and searching for words. Moves all extremities. PSYCHIATRIC: No obvious anxiety/depression. no apparent hallucinations or other psychotic thought process. Diagnostic Tests Laboratory: Laboratory Results - last 72 hr 06/19/18 06/19/18 06/19/18 14:33 14:38 14:38 WBC 11.7 H RBC 5.58 H Hgb 16.5 H Hct 50.4 H MCV 90.3 MCH 29.5 MCHC 32.7 RDW 15.0 Plt Count 247 MPV 8.9 Neut % (Auto) 67.2 Lymph % (Auto) 19.5 [place] % (Auto) 12.3 H Eos % (Auto) 0.4 Baso % (Auto) 0.6 Neut # (Auto) 7.9 H Lymph # (Auto) 2.3 [place] # (Auto) 1.4 H Eos # (Auto) 0.0 Baso # (Auto) 0.1 WBC Differential . Differential Comment Auto diff final PT INR APTT Sodium 131 L Potassium 4.7 Chloride 93 L Carbon Dioxide 27.7 Anion Gap 10 BUN 19 H Creatinine 1.73 H Estimated GFR 28 L POC Glucose 111 H Random Glucose 101 Lactic Acid Calcium 10.8 H Total Bilirubin 0.9 AST 77 H ALT 31 Alkaline Phosphatase 100 Total Creatine Kinase 141 CK-MB (CK-2) Less than 1.0 Troponin I Less than 0.02 L Total Protein 8.5 H Albumin 3.6 Lipase 136 Urine Color Urine Clarity Urine pH Ur Specific [place] Urine Protein Urine Glucose (UA) Urine Ketones Urine Occult Blood Urine Nitrate Urine Bilirubin Urine Urobilinogen Ur Leukocyte Esterase Urine RBC Urine WBC Ur Squamous Epith Cells Hyaline Casts Urine Mucus Micro UA Comment Ur Microscopic Review Urine Culture Comments 06/19/18 06/19/18 06/19/18 14:38 14:38 15:45 WBC RBC Hgb Hct MCV MCH MCHC RDW Plt Count MPV Neut % (Auto) Lymph % (Auto) [place] % (Auto) Eos % (Auto) Baso % (Auto) Neut # (Auto) Lymph # (Auto) [place] # (Auto) Eos # (Auto) Baso # (Auto) WBC Differential Differential Comment PT 14.2 H INR 1.4 APTT 31.5 Sodium Potassium Chloride Carbon Dioxide Anion Gap BUN Creatinine Estimated GFR POC Glucose Random Glucose Lactic Acid 2.0 Calcium Total Bilirubin AST ALT Alkaline Phosphatase Total Creatine Kinase CK-MB (CK-2) Troponin I Total Protein Albumin Lipase Urine Color Yellow Urine Clarity Clear Urine pH 6.0 Ur Specific [place] 1.008 Urine Protein Negative Urine Glucose (UA) Negative Urine Ketones Negative Urine Occult Blood Negative Urine Nitrate Negative Urine Bilirubin Negative Urine Urobilinogen Less than 2 Ur Leukocyte Esterase Negative Urine RBC Less than 1 Urine WBC 2 Ur Squamous Epith Cells <1 Hyaline Casts 7 Urine Mucus Few H Micro UA Comment Culture not ind Ur Microscopic Review Not Reportable Urine Culture Comments Culture not ind 06/20/18 06/20/18 06:40 06:40 WBC 10.3 RBC 5.06 Hgb 15.2 Hct 45.4 MCV 89.8 MCH 30.0 MCHC 33.4 RDW 15.0 Plt Count 223 MPV 8.8 Neut % (Auto) 70.9 H Lymph % (Auto) 18.6 [place] % (Auto) 9.6 H Eos % (Auto) 0.3 Baso % (Auto) 0.6 Neut # (Auto) 7.3 Lymph # (Auto) 1.9 [place] # (Auto) 1.0 H Eos # (Auto) 0.0 Baso # (Auto) 0.1 WBC Differential . Differential Comment Auto diff final PT INR APTT Sodium 136 Potassium 3.0 L D Chloride 98 Carbon Dioxide 26.5 Anion Gap 12 BUN 16 Creatinine 1.52 H Estimated GFR 32 L POC Glucose Random Glucose 109 H Lactic Acid Calcium 9.1 D Total Bilirubin AST ALT Alkaline Phosphatase Total Creatine Kinase CK-MB (CK-2) Troponin I Total Protein Albumin Lipase Urine Color Urine Clarity Urine pH Ur Specific [place] Urine Protein Urine Glucose (UA) Urine Ketones Urine Occult Blood Urine Nitrate Urine Bilirubin Urine Urobilinogen Ur Leukocyte Esterase Urine RBC Urine WBC Ur Squamous Epith Cells Hyaline Casts Urine Mucus Micro UA Comment Ur Microscopic Review Urine Culture Comments Result Diagrams: 06/20/18 06:40 06/20/18 06:40 Microbiology: Microbiology 06/19/18 14:30 Group A Streptococcus Screen ([facility]) - Final Throat 06/19/18 14:30 Influenza Types A,B Antigen - Final Nasal Wash Negative for FLU A and B antigen Infection due to influenza A or B cannot be ruled out since the antigen present in the sample may be below the detection limit of the test. Imaging: Impressions Chest X-Ray 06/19/18 14:01 CONCLUSION: No acute disease Patient/Family Conference Present at Family Conference: Nael Whitfield, /HCP [phone] Family Conference Location: Bedside Issues Discussed: * Palliative care role, purpose, approach * Additional medical, psychosocial, and spiritual history * Patients general health, functional status, and cognitive changes in the months leading up to the current hospitalization * Patient/family understanding of the current medical problems * Patient/family understanding of prognosis * Patients goals of care as best understood from conversations and/or values * Current medical treatment options and benefits/burdens of those options * Questions answered to the best of my ability * Palliative care contact information provided As previously stated Mrs. Whitfield is currently able to participate in her own healthcare decision making. Should she become incapacitated at any time, per [place] statutes decision making would fall to her Nael Whitfield by proxy. We discussed her ongoing clinical decline and lack of local family support and what concerns that poses moving forward. The patient's did offer that they have been considering moving back to [place], [place] where the majority of their children are located. During this admission they are hoping for optimal symptom management and to get the patient strong enough for her to return to her prior level of functionality. We did discuss CODE STATUS and what that it would entail particularly given the patient 's age and physical deconditioning. She is aware that should she need cardiopulmonary resuscitation would most likely not and in a favorable outcome from her. Given this information the patient wishes to remain in FULL CODE. Would like continue with aggressive treatment though would like to discuss the risks/benefits/alternatives of any type of aggressive or invasive procedures. Assessment and Plan - Disease Oriented Problem List (1) Acute dehydration (2) Adult failure to thrive Pertinent Non-Medical Issues: Psychosocial: Patient is originally from [place], [place]. Is where she met her who was originally born in [place]. 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 They have 6 children together 2 boys and 4 girls the majority of whom still resides in [place]. 24 grandchildren and 10 great- grandchildren. They retired to the [employer] in 1991. The patient has 2 sisters 1 of who lives locally both her parents are . Spiritual: [employer] Legal: In the absence of a documented living will per [place] statutes should the patient become incapacitated at any time decision making would fall to her Nael Whitfield [phone] by proxy Ethical issues impacting care: No known ethical issues impacting care at this time Important Contacts: Nael Whitfield, /HCP [phone] Prognosis: The patient has had a sharp functional decline over the past 2 weeks. She previously was independent of ambulation and all ADLs. Over the course of these 2 weeks she has progressively gotten weaker requiring assistance with getting in and out of bed, toileting, etc. She has also noticed a cognitive decline but is unable to quantify how long this has been happening. Her is able to agree with this. She was previously admitted in February of this year with a GI bleed, and has had multiple previous admissions for CHF exacerbation. Given her advanced age and multiple comorbidities she is definitely at increased risk for continued complication, physical decline, and even . Code Status: Full Code Plan: * LEGAL DECISION MAKER - Mrs. Whitfield is currently able to participate in her own healthcare decision making. Should she become incapacitated at any time, per [place] statutes decision making would fall to her Nael Whitfield by proxy. * GOALS - We discussed her ongoing clinical decline and lack of local family support and what concerns that poses moving forward. The patient's did offer that they have been considering moving back to [place], [place] where the majority of their children are located. During this admission they are hoping for optimal symptom management and to get the patient strong enough for her to return to her prior level of functionality. We did discuss CODE STATUS and what that it would entail particularly given the patient's age and physical deconditioning. She is aware that should she need cardiopulmonary resuscitation would most likely not and in a favorable outcome from her. Given this information the patient wishes to remain in FULL CODE. Would like continue with aggressive treatment though would like to discuss the risks/ benefits/alternatives of any type of aggressive or invasive procedures. * CODE STATUS - FULL CODE * SYMPTOMS Debility -the patient has had a sharp functional decline in the past 2 weeks. Should her goals will continue to remain aggressive, she would benefit from continued physical therapy and may actually require inpatient placement or rehab placement as it would be difficult for her to continue to care for her in this state. She has a dietitian order placed to ensure she does not have protein/calorie malnutrition which would be appropriate, though given her albumin level 3.6 I am not sure that this is the case. Would benefit from checking a a pre-albumin if this was of real concern. Forgetfulness -both patient and her have noticed an increase in forgetfulness and difficulty with word searching. This was discussed with Dr. Ureña and Hollie Gonzales PA will consider CT imaging of head. Pain -generalized, though per patient is improving. Also complaining of abdominal pain. Unclear etiology as to what her pain is though she is at increased risk given her age and debility. Patient may benefit from a abdominal KUB to rule out any type of functional or anatomical reason for abdominal pain. Will most likely stay away from any type of opiate use at this time given her slight confusion. She currently has acetaminophen 650 mg p.o. every 6 hours as needed for fever she could also use this for pain for the time being. Will make further recommendations as the case evolves. Palliative care will continue to follow during hospital course as condition evolves, to assist patient/decision maker with understanding of medical conditions, weighing benefits/burdens of treatment options, for clarification of goals of treatment. Additionally will assist with any symptoms of palliative concern. Case discussed with Dr. Ureña and Hollie AWAD Appreciation Thank you for the opportunity to participate in the care of Mi Whitfield. Attestation Attestation: To help prompt me to consider important information that might be impacting today's encounter and assessment, information from prior notes written by myself or my colleagues may have been "brought forward" into today's note. My signature on this note, however, is an attestation that I personally performed the exam, history, and/or decision-making noted today, and, unless otherwise indicated, the interactions with patient, family, and staff as well as the review of records all occurred today. I also attest that the listed assessment and stated plan reflect my best clinical judgment today based on the combination of historical information, prior notes, and today's exam/ interactions. When time spent is documented, it refers only to time spent today by the signer, or if indicated, combined time spent today by collaborating physician/nurse practitioner.
[2018-06-20] MEDS ORDERED: Potassium Chloride 10 MEQ ER Capsule PO ONE (11:49)
--- NOTE | 2018-06-20 11:55 | XR ---
EXAM DATE: 06/20/2018 11:39 AM EST AGE/SEX: 87 years / Female INDICATIONS: Abdominal pain. CLINICAL DATA: This is the patient's subsequent encounter. Patient reports that signs and symptoms h ave been present for 2 days and indicates a pain score of 4/10. MEDICAL/SURGICAL HISTORY: . Hypertension. Hysterectomy. Pacemaker. . COMPARISON: No prior exams available for comparison. FINDINGS: Calcification is present in the right upper quadrant. Bowel gas pattern is unremarkable. Thoracolumb ar scoliosis is noted with degenerative changes evident. CONCLUSION: Scoliosis, otherwise negative. Electronically signed by: Freddie Wiley MD 06/20/2018 11:54 AM EST
--- NOTE | 2018-06-20 12:42 | ECG ---
Date Performed: 06/19/2018 Time Performed: 14:35:33 PTAGE: 87 years EKG: ELECTRONIC VENTRICULAR PACEMAKER ABNORMAL RHYTHM ECG PREVIOUS TRACING : 02/23/2018 13.07 DOCTOR: Dennis Becerra Interpretating Date/Time 06/20/2018 12:40:40
--- NOTE | 2018-06-20 19:58 | CT ---
EXAM DATE: 06/20/2018 7:24 PM EST AGE/SEX: 87 years / Female INDICATIONS: Abdomen pain. CLINICAL DATA: This is the patient's initial encounter. Patient reports that signs and symptoms have been present for 1 day and indicates a pain score of 6/10. MEDICAL/SURGICAL HISTORY: Congestive heart failure. Chronic renal failure. Hypertension. A-f ib Pacemaker. Hysterectomy. ORAL CONTRAST: No oral contrast ingested. RADIATION DOSE: 15.66 CTDI (mGy) COMPARISON: [facility] [place], [place] PULMONARY ANGIOGRAM, 08/30/2015. . TECHNIQUE: Multiple contiguous axial images were obtained through the abdomen and pelvis following b olus infusion of 50 ml Visipaque 320 (iodixanol) nonionic water-soluble contrast as a single exam d ose. No oral contrast ingested. Using automated exposure control and adjustment of the mA and/or kV according to patient size, radiation dose was kept as low as reasonably achievable to obtain optimal diagnostic quality images. DICOM format image data is available electronically for review and compar bryon. FINDINGS: Lower Lungs: 1.8 cm lobular calcified lesion in the posterior lateral left lower lung, granuloma vers us hamartoma. No evidence of pleural effusion. Liver: The liver has a homogeneous density without space-occupying lesion. There is no dilation of th e biliary tree. Several peripherally calcified gallstone measuring up to 1.6 cm. Spleen: Homogeneous density without enlargement. Pancreas: Unremarkable without mass or calcification. Kidneys: Normal in size and shape. No evidence of mass or hydronephrosis. Adrenal Glands: Unremarkable. Aorta: The aorta and proximal iliac vessels are grossly unremarkable without aneurysmal dilation. Bowel/Mesentery: No dilated loops of small or large bowel. No evidence of free fluid. Abdominal Wall: Intact. Retroperitoneum: No evidence of adenopathy in the retrocrural, para-aortic, or deep pelvic regions. Bladder: Contours are smooth. Reproductive Organs: No abnormal masses or calcifications seen. Inguinal: Small fat-containing left inguinal hernia. Bony Structures: Moderate degenerative changes in the endplates and posterior elements of L4.. CONCLUSION: 1. Gallstones. 2. No dilated loops of small or large bowel. 3. Small left fat-containing hernia. Electronically signed by: Yosef Redding MD 06/20/2018 7:56 PM EST
[2018-06-21] MEDS: HYPROMELLOSE 2.5% EACH EYE SCH ×6 (01:00→22:08)
[2018-06-21] MEDS: OPTH EACH EYE SCH ×6 (01:00→22:08)
[2018-06-21] MEDS: Levothyroxine 75 MCG Tablet PO SCH (05:30)
[2018-06-21] MEDS: Levothyroxine 100 MCG Tablet PO SCH (05:30)
[2018-06-21 06:04] LABS: Baso # (Auto) 0.1 th/mm3 (0.0-0.2); Baso % (Auto) 0.7 % (0.0-2.0); Eos # (Auto) 0.1 th/mm3 (0.0-0.4); Eos % (Auto) 1.3 % (0.0-4.0); Hematocrit 40.9 % (35.0-46.0); Lymph # (Auto) 2.1 th/mm3 (1.0-4.8); Lymph % (Auto) 24.7 % (9.0-44.0); Mean Corpuscular HGB Conc 34.2 % (32.0-36.0); Mean Corpuscular Hemoglobin 30.4 pg (27.0-34.0); Mean Corpuscular Volume 88.8 fL (80.0-100.0); Mean Platelet Volume 8.8 fL (7.0-11.0); Mono # (Auto) 0.9 th/mm3 (0.0-0.9); Mono % (Auto) 10.9 % (0.0-8.0); Neut # (Auto) 5.3 th/mm3 (1.8-7.7); Neut % (Auto) 62.4 % (16.0-70.0); Platelet Count 204 th/mm3 (150-450); Red Cell Distribution Width 14.4 % (11.6-17.2); White Blood Count 8.6 th/mm3 (4.0-11.0)
[2018-06-21 06:35] LABS: Calcium 8.5 mg/dL (8.5-10.1); Carbon Dioxide 27.7 meq/L (21.0-32.0); Magnesium 1.9 mg/dL (1.5-2.5); Potassium 3.4 meq/L (3.5-5.1)
[2018-06-21] MEDS: Famotidine 20 MG Tablet PO SCH ×2 (09:53→22:06)
[2018-06-21] MEDS: Nystatin Liq 500,000 UNIT/5 ML UDC SWISH-SWAL SCH ×4 (09:53→22:08)
[2018-06-21] MEDS: dilTIAZem CD 240 MG Capsule PO SCH (09:53)
[2018-06-21] MEDS: Senna/Docusate Sodium 8.6/50 MG Tablet PO SCH ×2 (09:54→21:54)
--- NOTE | 2018-06-21 09:58 | P.PNIM ---
Subjective Interval history: Pt reports that her abdominal pain has improved today She is tolerating oral intake Pt had a BM last night. Physical Exam Vital signs: Last Vital Signs Temp 98.4 F 06/21/18 03:15 Pulse 71 06/21/18 07:14 Resp 18 06/21/18 07:14 BP 178/84 H 06/21/18 07:14 Pulse Ox 96 06/21/18 07:14 Narrative: General: NAD, AAOx3 Chest: CTA Cardiac: Regular Abd: +BS, soft, nontender Ext: No edema Results Labs CBC & Chem 7: 06/21/18 05:26 06/21/18 05:26 Imaging Chest X-Ray 06/19/18 14:01 CONCLUSION: No acute disease Abdomen X-Ray 06/20/18 00:00 CONCLUSION: Scoliosis, otherwise negative. Abdomen/Pelvis CT 06/20/18 00:00 CONCLUSION: 1. Gallstones. 2. No dilated loops of small or large bowel. 3. Small left fat-containing hernia. Assessment and Plan Plan Generalized weakness Abdominal pain - Pt is an 87 y/o female with CHF, CKD, stage 3, COPD, and atrial fibrillation on chronic anticoagulation with Coumadin who presented to the ED on 06/19/18 with complaints of abdominal discomfort with generalized weakness. The pt and her at bedside at not very good historians. - In review of outpt records. She was recently seen at [facility] urgent care on for ongoing abdominal pain. Per that record the pt had been seen at an ED in [place] on 06/07/18 with complaints of abdominal pain. The physician in the [facility] documented that her discharge paperwork from [place] diagnosed her with "gastritis" after having a CBC with diff, CMP, Lipase, two sets of negative troponins, and a negative CT abd/pelvis with contrast. She was given Mylanta, Benadryl, Reglan, Zofran, IVF, and Fentanyl when she was in the ED at that time and discharged with recommendation to followup with her PCP. Pt was reportedly not prescribed any medications at the time of discharge from the ED according to the [facility] records. - Upon her visit to [facility] on 06/15/18 she was prescribed Augmentin for treatment of suspected early diverticulitis and given Carafate for possible gastritis. UA at that time was negative. - Pt reports that over the last few days the pt has grown increasingly weaker and he was having to attempt to carry her around the house. The pt and her report that she had been eating and drinking without difficulty prior to admission. There were no reported fevers or chills. Pt has reportedly been having regular normal BMs. During a previous admission in 02/2018, pt underwent EGD/Colonoscopy (02/23/18) by Dr. Vaibhav Terrell which revealed mall hiatal hernia , 4 polyps one in the distal descending colon, 3 in the distal transverse colon - KUB (06/20/18) --> Scoliosis, otherwise negative - Pt had two BMs yesterday documented - CT Abd/pelvis with IV contrast (06/20/18): 1. Gallstones. 2. No dilated loops of small or large bowel. 3. Small left fat-containing hernia - Her abdominal pain is improved today - Pt is tolerating oral intake - Pt recommended SNF but pt does not want to be placed at a SNF. Nursing staff mentioned that her wants to take her back to [place] because the rest of the family is there and can help with her care. - Pt reports she feels better today. We will have PT re-evaluate and see how she looks today. - Replace her potassium - Anticipate d/c later today either to SNF or home with HHC/PT HTN - Pts BP overall was improved yesterday. It is elevated this morning but she has not recevied her medications yet. - Pt was continued on her home dose of Diltiazem 240mg daily, CLonidine 0.1mg HS , Lasix 80mg in AM and 40mg in PM A. fib s/p PPM - Cont. Diltiazem - INR subtherapeutic at 1.6 at admission, repeat INR 1.4 on 06/21 - Dr. Ureña feels that the pt is high risk for falls and would be safer off the Coumadin. - Will discuss with the pt and her whether or not to continue Coumadin. Attending Attestation Patient examined. Assessment and plan formulated with Hollie Gonzales PA-C. I agree with the above. dc to snf tomorrow. Progress Note: Quality VTE Deep Vein Thrombosis/Pulmonary Embolism Present on Admission: No
--- NOTE | 2018-06-21 10:39 | P.DIET ---
Nutritional Evaluation Type of nutrition evaluation: initial Nutrition screening: [facility] comments: 06/19/18 [facility] [place] PO Intake Subjective Oral Diet Tolerance Assessment Indicates: Sore mouth (pt has Thrush) Subjective Comments: Pt's at bedside during this visit. Pt very pleasant and slightly confused during this visit. Pt focused on her upcoming birthday and her children and their families coming here to celebrate w/her. Pt able to provide a few food preferences, asking for a popsicle for her mouth. DISH CARRIER reports pt had two large BMs 06/20. Objective - Diagnosis Failure To Thrive, Generalized Weakness - Objective % IBW: 130 Body Weight Used for Calculations: IBW (54.5 kg) Energy Needs - Lower Range (kCal/kg): 28 Energy Needs - Upper Range (kCal/kg): 33 Lower Limit kCal/kg (kCals): 1,526 Upper Limit kCal/kg (kCals): 1,799 Lower Limit Protein Factor (Grams per Kg): 1.1 Upper Limit Protein Factor (Grams per Kg): 1.3 Lower Protein Needs (Protein): 60 Upper Protein Needs (Protein): 71 Dietitian Reviewed in Medical Record: Curent medications, Intake & Output, Labs , Medical history Diet Order: Cardiac Oral Diet Intake Amount: Fair 50-75% Objective Comments: PMH includes: HLD, HTN, Pacemaker, AFib, CHF, Pulmonary Hypertension, CKD stage 3, hypothyroidism, diverticulitis, gastritis 06/20/18 CT abd/pelvis w/gallstones, small left fat-containing hernia Labs include: K 3.4, BUN 18, Creatinine 1.28, estGFR 39, Glucose 110 Meds include: Synthroid, Catapres, Pepcid, Theragran, Pravachol, Nystatin mouthwash LBM 06/20 Assessment Assessment: Pt is at nutritional risk r/t diagnosis and poor po intake. Noted pt has oral Thrush. Pt w/Adequate po intake 50% or greater for meals-needs assistance w/ meals. [place] pt's food preferences. Send Ensure BID(= 250 kcal and 9g protein per serving). Monitor renal labs closely. Dietitian following. Recommendations: 1. Pt needs assistance w/meals 2. [place] pt's food preferences 3. Send Ensure BID 4. Dietitian following Dietitian to Monitor: Lab values, Electrolytes, Renal labs, Supplement acceptance, Intake & Output, Diet tolerance, Weight change, PO Intake, Medical course
[2018-06-21] MEDS ORDERED: Potassium Chloride 10 MEQ ER Capsule PO ONE (10:40)
[2018-06-21] MEDS: Sertraline 50 MG Tablet PO SCH (10:53)
[2018-06-22] MEDS: HYPROMELLOSE 2.5% EACH EYE SCH ×3 (02:00→10:55)
[2018-06-22] MEDS: OPTH EACH EYE SCH ×3 (02:00→10:55)
[2018-06-22] MEDS: Levothyroxine 75 MCG Tablet PO SCH (05:33)
[2018-06-22] MEDS: Levothyroxine 100 MCG Tablet PO SCH (05:33)
--- NOTE | 2018-06-22 08:01 | P.DCO ---
Physical Therapy Order: Evaluate and treat Occupational Therapy Order: Evaluate and treat Home Health Nursing Order: Signs/symptoms of disease process and Nursing assessment with vital signs Instructions: CBC, BMP, PT/INR Q monday with results to the pts PCP, Dr. Soares. Case Management Consult Case Management Consult-Home Health: Yes I have seen patient Mi Whitfield on 06/22/18. My clinical findings support the need for the requested home health care services because: Deconditioned with increased weakness, Limited ability to care for self, Impaired cognition/judgement and High risk of falls I certify that my clinical findings support that this patient is homebound because: Impaired cognitive ability/safety and Unsteady gait/balance
--- NOTE | 2018-06-22 08:04 | P.DS ---
DS: Providers Date of admission: 06/19/18 16:48 Primary care physician: Dio Soares MD Consults: 06/19/18 16:46 Consult to Palliative Care Routine Consulting Provider: Jenn Mo Permastone Mechanic:: Bartolome Fair Reason for Consultation: clarification of goals Notified:: Service Spoke with:: TOM Date Notified:: 06/19/18 Time Notified:: 17:00 Ordering Provider: JENNIFER Brief History from admission: 87-year-old white female, presents to [facility] with complaints of 2 days of generalized weakness inability to ambulate without help. Patient has a medical history significant for hypercholesterolemia hypertension pacemaker for possible probable atrial fibrillation pulmonary hypertension and CKD. Patient is a poor historian and really cannot get much history from her extremely weak. Apparently was in the hospital 2 weeks ago [place] in [place] is going to try and obtain those records. She does carry a past medical history of congestive heart failure chronic kidney disease atrial fibrillation who had been on warfarin with a GI bleed in February patient denies any fever any history of abdominal problems other than the GI bleed of note when she had the GI bleed her Coumadin level was slightly elevated and INR she underwent an which revealed some polyps in the distal colon and transverse colon benign in appearance she underwent a negative bleeding scan as well. EDG/ colonoscopy. Patient at this time has poor skin turgor consistent with significant dehydration and may have thrush as well will be admitted at this time for IV hydration and will start nystatin swish and swallow. In review of lab work they are consistent with dehydration elevated BUN and creatinine and elevated hemoglobin. DS: Summary Generalized weakness Abdominal pain - Pt is an 87 y/o female with CHF, CKD, stage 3, COPD, and atrial fibrillation on chronic anticoagulation with Coumadin who presented to the ED on 06/19/18 with complaints of abdominal discomfort with generalized weakness. The pt and her at bedside at not very good historians. In review of outpt records. She was recently seen at [facility] urgent care on 06/15/18 for ongoing abdominal pain. Per that record the pt had been seen at an ED in [place] on 06/07/18 with complaints of abdominal pain. The physician in the [facility] documented that her discharge paperwork from [place] diagnosed her with "gastritis" after having a CBC with diff, CMP, Lipase, two sets of negative troponins, and a negative CT abd/pelvis with contrast. She was given Mylanta, Benadryl, Reglan, Zofran, IVF, and Fentanyl when she was in the ED at that time and discharged with recommendation to followup with her PCP. Pt was reportedly not prescribed any medications at the time of discharge from the ED according to the [facility] records. Upon her visit to [facility] on 06/15/18 she was prescribed Augmentin for treatment of suspected early diverticulitis and given Carafate for possible gastritis. UA at that time was negative. Pt reported that over the last few days the pt has grown increasingly weaker and he was having to attempt to carry her around the house. The pt and her report that she had been eating and drinking without difficulty prior to admission. There were no reported fevers or chills. Pt has reportedly been having regular normal BMs. During a previous admission in 02/2018, pt underwent EGD/Colonoscopy (02/23/18) by Dr. Vaibhav Terrell which revealed small hiatal hernia, 4 polyps one in the distal descending colon, 3 in the distal transverse colon. She had a KUB (06/20/18) --> Scoliosis, otherwise negative. CT Abd/ pelvis with IV contrast (06/20/18) --> Gallstones, no dilated loops of small or large bowel, small left fat-containing hernia. Her abdominal pain is improved on 06/21. Pt had two BMs on 06/20 documented and her abdominal discomfort improved. Her pain may have been attributed to some degree of constipation. Pt is tolerating oral intake. PT recommended SNF. Nursing staff mentioned that her wants to take her back to [place] because the rest of the family is there and can help with her care. Anticipate d /c later today either to SNF or home with HHC/PT. HTN - Pts BP overall has been stable on her home regimen, minus her lasix. The Lasix was held at admission due to some degree of dehydration. Her Lasix is resumed on the day of discharge. Pt will be continued on her home dose of Diltiazem 240mg daily, CLonidine 0.1mg HS, and her Lasix dose will be reduced to 40mg BID from 80mg in AM and 40mg in PM A. fib s/p PPM - She was cont. on her Diltiazem. Her INR was subtherapeutic at 1.6 at admission , repeat INR 1.4 on 06/21. Dr. Ureña felt that the pt is high risk for falls and would be safer off the Coumadin. The pt and and her want to continue Coumadin. We will resume this at discharge and have weekly labs performed either at the rehab or by [facility]/ Pt is to followup with her PCP, Dr. Soaers in 1week. Time Spent with Patient Total time spent providing and/or coordinating discharge services: Quality: VTE Deep Vein Thrombosis/Pulmonary Embolism Present on Admission: No Results Labs on day of discharge: Labs from last 24 hours 06/22/18 05:52 Sodium Pending Potassium Pending Chloride Pending Carbon Dioxide Pending Anion Gap Pending BUN Pending Creatinine Pending Random Glucose Pending Calcium Pending Preliminary micro results at discharge 06/19/18 14:38 Aerobic Blood Culture - Preliminary Blood - Peripheral No growth in 2 days Anaerobic Blood Culture - Preliminary No growth in 2 days 06/19/18 14:38 Aerobic Blood Culture - Preliminary Blood - Peripheral No growth in 2 days Anaerobic Blood Culture - Preliminary No growth in 2 days Impressions ITS Impressions Chest X-Ray 06/19/18 14:01 CONCLUSION: No acute disease Abdomen X-Ray 06/20/18 00:00 CONCLUSION: Scoliosis, otherwise negative. Abdomen/Pelvis CT 06/20/18 00:00 CONCLUSION: 1. Gallstones. 2. No dilated loops of small or large bowel. 3. Small left fat-containing hernia. Discharge Plan Discharge Disposition Patient Disposition: Discharge to SNF Discharge Condition Condition: Stable Discharge Order Discharge Orders: Discharge Order (Routine); Ordered 06/22/18 Ordered By: Hollie Gonzales Discharge Details Anticipated Discharge Date: 06/22/18 Discharge Comment: Followup with Dr. Soares in 1 week Physicians Team Primary Care Provider: Dio Soares Attending Provider: Suleman Ureña Other Providers: Jenn Mo ; Kalyn [place],Agency Rxs /Orders / Referrals /Forms Prescriptions: Continue warfarin 2 mg Tablet 2 mg PO MOTUWETHFR RF: 0 multivitamin [Multiple Vitamins] Tablet 1 tab PO DAILY RF: 0 levothyroxine 175 mcg Tablet 175 mcg PO DAILY RF: 0 clonidine HCl 0.1 mg Tablet 0.1 mg PO HS RF: 0 omega-3 fatty acids [Fish Oil Concentrate] 1,000 mg Capsule 1,200 mg PO BID RF: 0 diltiazem HCl 240 mg Capsule,Ext.Rel 24h Degradable 240 mg PO DAILY RF: 0 lovastatin 40 mg Tablet 40 mg PO QPM RF: 0 cyanocobalamin (vitamin B-12) [Vitamin B-12] 1,000 mcg Tablet 1,000 mcg PO BID RF: 0 acetaminophen [Tylenol Extra Strength] 500 mg Tablet 500 mg PO BID RF: 0 ranitidine HCl 300 mg Capsule 300 mg PO DAILY RF: 0 warfarin 2 mg Tablet 2.5 mg PO SUSA RF: 0 estradiol 2 mg Tablet 2 mg PO DAILY RF: 0 sertraline 50 mg Tablet 50 mg PO DAILY RF: 0 artifi.tears(hypromellose)(PF) 0.3 % Drops 1 drp OPHTHALMIC (EYE) Q4-6H RF: 0 calcium carbonate-vitamin D3 [Calcium 600 with Vitamin D3] 600 mg(1,500mg) - 400 unit Capsule RF: 0 potassium chloride [K-Tab] 20 mEq Tablet Extended Release 20 meq PO BID RF: 0 Osteo Bi-Flex PO DAILY RF: 0 Changed furosemide [Lasix] 40 mg Tablet 40 mg PO BID Qty: 6 RF: 0 Discontinued amoxicillin-pot clavulanate [Augmentin] 875-125 mg Tablet 1 tab PO BID RF: 0 furosemide 40 mg Tablet 80 mg PO QAM RF: 0 ascorbic acid (vitamin C) [Vitamin C] 1,000 mg Tablet 1,000 mg PO DAILY RF: 0 [id number] C-Mn [Glucosamine-Chondroitin Complx] Capsule RF: 0 Referrals: Dio Soares MD [Primary Care Provider] - See Instructions Discharge Instructions Patient Printed Instructions: Heart Failure (ED), Heart Failure (DC), Failure to Thrive (DC), Oral Candidiasis (ED), Acute Posthemorrhagic Anemia (DC) Status ED Status: Left Department Discharge Information Discharge Date/Time: 06/22/18 12:34
[2018-06-22 08:05] LABS: Calcium 8.6 mg/dL (8.5-10.1); Carbon Dioxide 28.1 meq/L (21.0-32.0)
[2018-06-22] MEDS ORDERED: Furosemide 40 MG Tablet PO SCH (09:00)
[2018-06-22 09:23] VITALS: RESP 16; O2SAT 95
[2018-06-22] MEDS: dilTIAZem CD 240 MG Capsule PO SCH (10:53)
[2018-06-22] MEDS: Nystatin Liq 500,000 UNIT/5 ML UDC SWISH-SWAL SCH (10:54)
[2018-06-22] MEDS: Famotidine 20 MG Tablet PO SCH (10:54)
[2018-06-22] MEDS: Sertraline 50 MG Tablet PO SCH (10:54)
[2018-06-22] MEDS: Senna/Docusate Sodium 8.6/50 MG Tablet PO SCH (10:56)
[2018-06-22 11:47] VITALS: BP 164/72; PULSE 72; TEMP 98.4
== END 2018-06-22 12:34 ==
LOC: NEPE 11:11 → NEDA 11:11 → NEPFCDU 17:49
PROVIDERS: ADMIT Hospitalist; ATTEND Hospitalist
DX: Z79.01 Long term (current) use of anticoagulants; I48.91 Unspecified atrial fibrillation; J44.9 Chronic obstructive pulmonary disease, unspecified; B37.0 Candidal stomatitis; I13.0 Hypertensive heart and chronic kidney disease with heart failure and stage 1 through stage 4 chronic kidney disease, or unspecified chronic kidney disease; E03.9 Hypothyroidism, unspecified; N18.3 Chronic kidney disease, stage 3 (moderate); R62.7 Adult failure to thrive; E86.0 Dehydration; E78.00 Pure hypercholesterolemia, unspecified; Z87.891 Personal history of nicotine dependence; K80.20 Calculus of gallbladder without cholecystitis without obstruction; I27.20 Pulmonary hypertension, unspecified; I50.9 Heart failure, unspecified; Z79.899 Other long term (current) drug therapy; M41.85 Other forms of scoliosis, thoracolumbar region; K40.90 Unilateral inguinal hernia, without obstruction or gangrene, not specified as recurrent